=== PATIENT | male | born 1935 | race Caucasian/White ===

== ENCOUNTER 2018-01-25 09:45 | Emergency (ER) | payer MEDICARE, BC, OTHER | END 2018-01-25 10:36 | disposition home or self-care (01) | LOC: SCSER 09:45 | DX: G89.18 Other acute postprocedural pain (principal); R51 Headache; E78.5 Hyperlipidemia, unspecified; G40.909 Epilepsy, unspecified, not intractable, without status epilepticus; Z79.82 Long term (current) use of aspirin; Z79.899 Other long term (current) drug therapy | CPT/HCPCS: 99283 ==

== ENCOUNTER 2018-06-10 14:34 | Emergency (ER) | payer MEDICARE, BC, OTHER | END 2018-06-10 18:42 | disposition home or self-care (01) | LOC: ERS 14:34 | DX: S06.5X1A Traumatic subdural hemorrhage with loss of consciousness of 30 minutes or less, initial encounter (principal); E78.5 Hyperlipidemia, unspecified; Z79.899 Other long term (current) drug therapy; W19.XXXA Unspecified fall, initial encounter | CPT/HCPCS: 99283 ==

== ENCOUNTER 2018-06-19 08:48 | Outpatient (CLI) | payer MEDICARE, OTHER ==
--- NOTE | 2018-06-19 10:12 | CT ---
BRAIN CT WITHOUT IV CONTRAST: Date: 06/19/18 HISTORY: 83-year-old male with history of prior subdural hemorrhage from a fall in April 2018. S06.5X0A. FINDINGS: There is some stable atrophy and chronic white matter ischemic change. There is an approximately 0.6 cm thick focal area of extra-axial fluid overlying the left posterior frontoparietal region, evidence for chronic subdural hematoma. No significant midline shift. No evidence for acute hemorrhage. 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 Stable atrophy and chronic white matter ischemic change. No a cute mass or bleed. POS: [facility]
== END 2018-06-19 08:49 | disposition home or self-care (01) ==
LOC: TBSIIMAG 08:48
PROVIDERS: ATTEND Surgery
DX: S06.5X0A Traumatic subdural hemorrhage without loss of consciousness, initial encounter (principal); G31.9 Degenerative disease of nervous system, unspecified
CPT/HCPCS: 70450

== ENCOUNTER 2018-12-20 08:57 | Inpatient (IN) | payer MEDICARE, OTHER, BC ==
[2018-12-20] MEDS ORDERED: Morphine 4 MG/ML VIAL ONE (09:55)
[2018-12-20] MEDS ORDERED: SODIUM CHLORIDE 0.9% IVPB SCH (10:00)
[2018-12-20] MEDS ORDERED: ACYCLOVIR SODIUM IVPB SCH (10:00)
[2018-12-20 10:06] LABS: Hemoglobin 15.5 g/dL (14.0-18.0); Mean Corpuscular HGB CONC 34.5 g/dL (32.0-36.0); Mean Corpuscular Hemoglobin 32.2 pg (27.0-31.0); Mean Corpuscular Volume 93.2 fL (78.0-98.0); RBC Distribution Width 11.8 % (11.5-14.5); Red Blood Cell (RBC) Count 4.81 mill/uL (4.70-6.10); White Blood Cell (WBC) Count 5.5 thou/uL (4.8-10.8)
[2018-12-20 10:22] LABS: Large Platelets SLIGHT; Lymphocytes 2 % (21-51); MDiff Complete? YES; Mean Platelet Volume 7.5 fL (7.4-10.4); Monocytes 10 % (0-10); Neutrophil 78 % (42-75); Platelet Count 107 thou/uL (130-400); Platelet Morphology Comment Appears Decreased; RBC Morphology Normal; Reactive Lymphocytes 10 % (0-10)
[2018-12-20 10:27] LABS: ALT (SGPT) 46 U/L (8-55); AST (SGOT) 32 U/L (5-34); Albumin 4.1 g/dL (3.4-4.8); Alkaline Phosphatase 83 U/L (40-150); Anion Gap 13 mmol/L (10-20); BUN (Urea Nitrogen) 19 mg/dL (8.4-25.7); Bilirubin, Total 1.6 mg/dL (0.2-1.2); Calc. Creatinine Clearance 0 mL/min (70-130); Calcium 9.1 mg/dL (7.8-10.44); Carbon Dioxide 28 mmol/L (23-31); Chloride 93 mmol/L (98-107); Estimated GFR-MDRD 71; Globulin 2.1 g/dL (2.4-3.5); Glucose 111 mg/dL (83-110); Potassium 4.3 mmol/L (3.5-5.1); Protein, Total 6.2 g/dL (5.8-8.1); Sodium 130 mmol/L (136-145)
--- NOTE | 2018-12-20 11:58 | RAD ---
CHEST 1 VIEW: HISTORY: Altered mental status. COMPARISON: None. FINDINGS: There are surgical clips and mediastinal sternotomy wires. Normal cardiac silhouette. The pulmonary vessels and hilum are normal. Costophrenic angles are clear. Chronic changes, without consolidatio n or mass. No pneumothorax or osseous abnormalities. IMPRESSION: No acute cardiopulmonary process. POS: [facility]
--- NOTE | 2018-12-20 12:07 | CT ---
HEAD CT WITHOUT CONTRAST: DATE: 12/20/2018. COMPARISON: 06/19/2018. HISTORY: Seizures, head injury. TECHNIQUE: Axial CT imaging at 5 mm intervals from vertex through the skull base without contrast. FINDINGS: There is atherosclerotic calcification of the distal right vertebral artery and bilateral cavernous c arotid arteries. There is mild diffuse cerebral volume loss. There is periventricular and deep white matter hypodensi ty, evidence of small-vessel disease. There is no intracranial hemorrhage, midline shift, or mass effect. IMPRESSION: Chronic findings as detailed above. No intracranial hemorrhage or displaced calvarial fracture. POS: [facility]
[2018-12-20 12:31] LABS: Bilirubin Negative (Negative); Blood, Urine Negative (Negative); Clarity CLEAR (Clear); Glucose, Urine (Dipstick) Negative (Negative); Leukocyte Negative (Negative); Nitrite Negative (Negative); Protein, Urine (Dipstick) Trace mg/dL (Neg-Trace); Specific Gravity, Urine 1.023 (1.002-1.036); Urobilinogen 0.2 mg/dL (0.2-1.0); pH, Urine 5.5 (5.0-9.0)
[2018-12-20] MEDS ORDERED: Proparacaine 0.5% Opth 15 ML BOT ONE (13:00)
[2018-12-20] MEDS ORDERED: Fluorescein Opthalmic Strip ONE (13:00)
[2018-12-20] MEDS ORDERED: Zolpidem Tartrate 5 MG TAB PO PRN (14:00)
[2018-12-20] MEDS ORDERED: Ondansetron PF 4 MG/2 ML Vial IVP PRN (14:00)
--- NOTE | 2018-12-20 14:20 | PDOC.EVN ---
Event Note - Event Note Event Note: H&P dictated #[id number] A/P 1) Shingles on V1 distribution branch 2) CAD s/p CABG in 1996 3) HTN 4) HLD 5) Hx of seizures - acyclovir 800mg IV q8hrs, case d/w patient's opthamologist Dr. Tejada, has lesions in his eyes, will require inaptient admission - gabapentin for pain - calamine lotion BID - home meds continued as appropriate - full code - off note patient sees Dr. Campbell for his seizures, stable - case and plan d/w patient at length, he understood and agreed with this plan.
[2018-12-20 15:22] VITALS: BMI 24.5
[2018-12-20] MEDS: Acyclovir Sodium 660 MG in Sodium Chloride 0.9% 100 ML IVPB SCH (18:30)
[2018-12-20] MEDS: LEVETIRACETAM 750 MG PO SCH (21:08)
[2018-12-20] MEDS ORDERED: Ketorolac Tromethamine 30 MG/ML VIAL IVP PRN (21:15)
[2018-12-21] MEDS: Acyclovir Sodium 660 MG in Sodium Chloride 0.9% 100 ML IVPB SCH ×3 (01:10→18:06)
[2018-12-21 06:38] LABS: Anion Gap 13 mmol/L (10-20); BUN (Urea Nitrogen) 25 mg/dL (8.4-25.7); Calc. Creatinine Clearance 59 mL/min (70-130); Calcium 8.9 mg/dL (7.8-10.44); Carbon Dioxide 30 mmol/L (23-31); Chloride 94 mmol/L (98-107); Estimated GFR-MDRD 73; Glucose 107 mg/dL (83-110); Potassium 4.5 mmol/L (3.5-5.1); Sodium 132 mmol/L (136-145)
[2018-12-21 06:44] LABS: Eosinophils 1 % (0-10); Hemoglobin 15.2 g/dL (14.0-18.0); Lymphocytes 20 % (21-51); MDiff Complete? YES; Mean Corpuscular HGB CONC 33.9 g/dL (32.0-36.0); Mean Corpuscular Hemoglobin 32.2 pg (27.0-31.0); Mean Corpuscular Volume 95.1 fL (78.0-98.0); Mean Platelet Volume 7.6 fL (7.4-10.4); Monocytes 10 % (0-10); Neutrophil 68 % (42-75); Platelet Count 116 thou/uL (130-400); Platelet Morphology Comment Appears Decreased; RBC Distribution Width 11.9 % (11.5-14.5); Red Blood Cell (RBC) Count 4.72 mill/uL (4.70-6.10); White Blood Cell (WBC) Count 4.5 thou/uL (4.8-10.8)
--- NOTE | 2018-12-21 07:59 | HP ---
CHIEF COMPLAINT: Left-sided head pain. 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 On visual examination, he was found to have lesions in his cornea as well. The patient has an skirt maker that he sees in [facility]. Assistant Front Office Manager was contacted. Assistant Front Office Manager name is Dr. Tejada. The skirt maker recommended admission to the hospital for IV acyclovir to be taken 10 mg/kg q.8 hours. The patient states that he has never had this issue before. Does admit to prior medical history of coronary artery bypass graft in 1996 and coronary artery disease, hyperlipidemia, and hypertension. The patient otherwise denies any other nausea, vomiting, diarrhea, constipation, chest pain, fever, chills, or shortness of breath. No family at bedside during time of interview. The patient states currently pain is well controlled. He is having significant difficulty when he opens his left eye. Otherwise, no other issues. No alleviating or aggravating factors. Pain is 7/10 and lightning bolt like in nature. ALLERGIES: NO KNOWN DRUG ALLERGIES. PAST MEDICAL HISTORY: Hypertension, hyperlipidemia, coronary artery disease, status post CABG in 1996. SOCIAL HISTORY: Social drinker. Nonsmoker. FAMILY HISTORY: Heart disease and hypertension. HOME MEDICATIONS: See DEC. REVIEW OF SYSTEMS: All systems reviewed, pertinent positives in HPI, otherwise negative. PHYSICAL EXAMINATION: VITAL SIGNS: Blood pressure 144/98, temperature 98, respiratory rate 18, heart rate of 88. GENERAL: The patient is lying in bed comfortably. HEENT: Crusted rash noted with herbert crust on distribution of the trigeminal nerve. The patient noted to have ocular swelling on the left eye as well. Orbital edema noted upon opening of the eyelid. The patient was noted to have some lesions on the cornea. Otherwise, oral cavity moist and pink. Thyroid nontender, mobile. CARDIOVASCULAR: Regular rate and rhythm. S1, S2. No murmurs, rubs, or gallops appreciated. PULMONARY: Clear to auscultation bilaterally. No respiratory distress. Normal respiratory rate. ABDOMEN: Positive bowel sounds. Soft, nontender. No rebound or guarding noted. EXTREMITIES: 2+ peripheral pulses. No cyanosis, clubbing, or edema noted. NEUROLOGIC: Cranial nerves 2 through 12 intact. LABORATORY DATA: CBC within normal limits. Basic metabolic panel shows serum sodium of 130, otherwise rest of BMP within normal limits. Urinalysis has trace ketones, otherwise is within normal limits. The patient had a chest x-ray done, which showed no acute cardiopulmonary pathology. The patient also had a brain CT done, which showed atherosclerotic calcifications in the distal right vertebral artery as well as bilateral cavernous carotid arteries; however, no acute intracranial hemorrhage or displaced fracture or bleeding noted or prior tumors noted. ASSESSMENT: 1. Shingles branch of the trigeminal nerve. 2. Hypertension. 3. Coronary artery disease. 4. Hyperlipidemia. 5. Seizures. PLAN: 1. At this point in time after discussion with the skirt maker, we will admit the patient for IV acyclovir 10 mg/kg q.8 hours which comes out to about 800 mg q.8 hours. 2. We will also give the patient calamine lotion to be applied 10 mL q.[address] will place the patient on isolation and droplet precaution. 4. Labs dated in the morning. 5. We will use gabapentin for neuropathic pain. 6. We will also provide the patient with his home blood pressure medications. 7. We will also continue his home medications for seizures. 8. SCDs for DVT prophylaxis. The patient wishes to remain a full code after discussion. Case and plan discussed with the patient at length. He understood and agreed with this plan. Job ID: [id number]
[2018-12-21] MEDS: Aspirin 81 mg Enteric Coated Tablet PO SCH (09:34)
[2018-12-21] MEDS: Lisinopril 10 MG TAB PO SCH (09:34)
[2018-12-21] MEDS: Atorvastatin Calcium 40 MG TAB PO SCH (09:34)
[2018-12-21] MEDS: LEVETIRACETAM 750 MG PO SCH ×2 (09:35→21:05)
[2018-12-21] MEDS: Calamine/Zinc Oxide 177 ML LOTION TP SCH (09:59)
--- NOTE | 2018-12-21 14:56 | PDOC.PN ---
- Subjective Encounter Start Date: 12/21/18 Encounter Start Time: 14:54 Subjective: pt does not talk much and unintelligable replies -: unable to open L eye.R -: RN was able to feed him Ensure w/o swollowing issues no family at bedside - Objective MAR Reviewed: Yes Vital Signs & Weight: Vital Signs (12 hours) Temp Pulse Resp BP BP Pulse Ox 12/21/18 09:34 166/66 H 12/21/18 08:44 100.7 F H 83 20 160/66 H 93 L Weight Weight 157 lb I&O: 12/20/18 12/21/18 12/22/18 06:59 06:59 06:59 Intake Total 200 Balance 200 Result Diagrams: 12/21/18 04:26 12/21/18 04:26 Phys Exam - Physical Examination Constitutional: NAD HEENT: PERRLA, moist MMs, oral pharynx no lesions left eyelid swollen.Extensive crusting rash on left forhead Neck: no nodes, no JVD, supple, full ROM Respiratory: no wheezing, no rales, no rhonchi, clear to auscultation bilateral Cardiovascular: RRR, no significant murmur Gastrointestinal: soft, non-tender, no distention, positive bowel sounds Musculoskeletal: no edema, pulses present Neurological: non-focal, normal sensation, moves all 4 limbs does not follow commands much Psychiatric: normal affect Dx/Plan (1) HZV (herpes zoster virus) with ophthalmic complication Code(s): B02.30 - ZOSTER OCULAR DISEASE, UNSPECIFIED Status: Acute (2) HTN (hypertension) Code(s): I10 - ESSENTIAL (PRIMARY) HYPERTENSION Status: Chronic (3) CAD (coronary artery disease) Code(s): I25.10 - ATHSCL HEART DISEASE OF [place] CORONARY ARTERY W/O ANG PCTRS Status: Chronic - Plan continue antibiotics, PT/OT, DVT proph w/SCDs cont IV acyclovir. -: will consult Othalmologuy for zoster opthalmicus -: cont home meds.on antiepileptics.? Sz disorder -: BP running high. cont home meds. prn antihypertensives -: am labs. contact/droplet isolation * .low grade fever-check blood Cx * cont gabapentin prn for neuralgia Review of Systems - Review of Systems Other: can not be reliably obtained due to ? underlying dementia - Medications/Allergies Allergies/Adverse Reactions: Allergies Allergy/AdvReac Type Severity Reaction Status Date / Time shellfish derived Allergy Verified 12/20/18 15:28 Medications: Current Medications Aspirin (Ecotrin) 81 mg PO DAILY [facility] Last Admin: 12/21/18 09:34 Dose: 81 mg Atorvastatin Calcium (Lipitor) 80 mg PO DAILY [facility] Last Admin: 12/21/18 09:34 Dose: 80 mg Calamine/Zinc Oxide (Calamine Lotion) 10 ml TP DAILY [facility] Last Admin: 12/21/18 09:59 Dose: 10 ml Gabapentin (Neurontin) 300 mg PO TID PRN PRN Reason: neuro pathic pain Acyclovir Sodium 660 mg/ (Sodium Chloride) 113.2 mls @ 97.586 mls/hr IVPB 0200, 1000,1800 [facility] Last Admin: 12/21/18 09:32 Dose: 113.2 mls Ketorolac Tromethamine (Toradol) 15 mg IVP Q6H PRN PRN Reason: PAIN/TEMPERATURE Stop: 12/25/18 21:16 Last Admin: 12/21/18 01:07 Dose: 15 mg Lisinopril (Zestril) 10 mg PO DAILY [facility] Last Admin: 12/21/18 09:34 Dose: 10 mg Ondansetron HCl (Zofran) 4 mg IVP Q6H PRN PRN Reason: Nausea/Vomiting Levetiracetam 750 Mg 0 each PO BID [facility] Last Admin: 12/21/18 09:35 Dose: 1 each Zolpidem Tartrate (Ambien) 5 mg PO HSPRN PRN PRN Reason: Insomnia
[2018-12-21] MEDS: Acetaminophen 325 MG TAB PO PRN (18:07)
[2018-12-21] MEDS: OXcarbazepine 150 MG TAB PO SCH (21:05)
[2018-12-22] MEDS: Acyclovir Sodium 660 MG in Sodium Chloride 0.9% 100 ML IVPB SCH ×3 (01:29→17:51)
[2018-12-22] MEDS: Acetaminophen 325 MG TAB PO PRN ×2 (01:29→20:30)
[2018-12-22] MEDS: Aspirin 81 mg Enteric Coated Tablet PO SCH (08:54)
[2018-12-22] MEDS: Lisinopril 10 MG TAB PO SCH (08:54)
[2018-12-22] MEDS: Atorvastatin Calcium 40 MG TAB PO SCH (08:55)
[2018-12-22] MEDS: LEVETIRACETAM 750 MG PO SCH ×2 (08:55→20:27)
[2018-12-22] MEDS: Gabapentin 300 MG CAP PO PRN ×2 (08:55→18:03)
[2018-12-22] MEDS: Calamine/Zinc Oxide 177 ML LOTION TP SCH (08:56)
[2018-12-22] MEDS: OXcarbazepine 150 MG TAB PO SCH ×2 (09:16→20:26)
--- NOTE | 2018-12-22 14:06 | PDOC.PN ---
- Subjective Encounter Start Date: 12/22/18 Encounter Start Time: 14:04 Subjective: feels better. care discussed in length w at bedside -: RN reports better appetite -: no new events. reports he sleeps for long hrs at home too - Objective MAR Reviewed: Yes Vital Signs & Weight: Vital Signs (12 hours) Temp Pulse Resp BP BP Pulse Ox 12/22/18 11:45 97.8 F 67 20 160/77 H 92 L 12/22/18 08:54 154/73 H 12/22/18 08:07 98.9 F 65 20 154/73 H 93 L 12/22/18 08:00 93 L 12/22/18 04:17 98.4 F 67 20 156/68 H 92 L Weight Weight 157 lb I&O: 12/21/18 12/22/18 12/23/18 06:59 06:59 06:59 Intake Total 200 910 Balance 200 910 Result Diagrams: 12/21/18 04:26 12/21/18 04:26 Additional Labs: Microbiology 12/21/18 12:04 Venous blood - Right Arm Blood Culture - Preliminary Specimen has been received and culture in progress. No Growth to date. 12/21/18 12:04 Venous blood - Left Hand Blood Culture - Preliminary Specimen has been received and culture in progress. No Growth to date. Phys Exam - Physical Examination Constitutional: NAD scabing zoster rash L forehead w eyelid swelling Neck: no nodes, no JVD, supple, full ROM Respiratory: no wheezing, no rales, no rhonchi, clear to auscultation bilateral Cardiovascular: RRR, no significant murmur Gastrointestinal: soft, non-tender, no distention, positive bowel sounds Musculoskeletal: no edema, pulses present Neurological: non-focal, normal sensation, moves all 4 limbs Psychiatric: normal affect Skin: no rash Dx/Plan (1) HZV (herpes zoster virus) with ophthalmic complication Code(s): B02.30 - ZOSTER OCULAR DISEASE, UNSPECIFIED Status: Acute Comment: on IV Acyclovir (2) HTN (hypertension) Code(s): I10 - ESSENTIAL (PRIMARY) HYPERTENSION Status: Chronic (3) CAD (coronary artery disease) Code(s): I25.10 - ATHSCL HEART DISEASE OF [place] CORONARY ARTERY W/O ANG PCTRS Status: Chronic - Plan plan discussed w/ family, DVT proph w/SCDs clinically better. fever improving. blood Cx -ve so far.follow -: cont IV accyclovir -: appreciate Opthalmology eval.no corneal involvement -: supportive care * . Review of Systems - Review of Systems Constitutional: fever. negative: chills, sweats, weakness, malaise, other ENT: negative: Ear Pain, Ear Discharge, Nose Pain, Nose Discharge, Nose Congestion, Mouth Pain, Mouth Swelling, Throat Pain, Throat Swelling, Other Respiratory: negative: Cough, Dry, Shortness of Breath, Hemoptysis, SOB with Excertion, Pleuritic Pain, Sputum, Wheezing Cardiovascular: negative: chest pain, palpitations, orthopnea, paroxysmal nocturnal dyspnea, edema, light headedness, other Gastrointestinal: negative: Nausea, Vomiting, Abdominal Pain, Diarrhea, Constipation, Melena, Hematochezia, Other Genitourinary: negative: Dysuria, Frequency, Incontinence, Hematuria, Retention , Other Other: limited due to somnolence - Medications/Allergies Allergies/Adverse Reactions: Allergies Allergy/AdvReac Type Severity Reaction Status Date / Time shellfish derived Allergy Verified 12/20/18 15:28 Medications: Current Medications Acetaminophen (Tylenol) 650 mg PO Q6H PRN PRN Reason: Fever or Pain Last Admin: 12/22/18 01:29 Dose: 650 mg Aspirin (Ecotrin) 81 mg PO DAILY [facility] Last Admin: 12/22/18 08:54 Dose: 81 mg Atorvastatin Calcium (Lipitor) 80 mg PO DAILY [facility] Last Admin: 12/22/18 08:55 Dose: 80 mg Calamine/Zinc Oxide (Calamine Lotion) 10 ml TP DAILY [facility] Last Admin: 12/22/18 08:56 Dose: 10 ml Gabapentin (Neurontin) 300 mg PO TID PRN PRN Reason: neuro pathic pain Last Admin: 12/22/18 08:55 Dose: 300 mg Acyclovir Sodium 660 mg/ (Sodium Chloride) 113.2 mls @ 97.586 mls/hr IVPB 0200, 1000,1800 [facility] Last Admin: 12/22/18 09:16 Dose: 113.2 mls Ketorolac Tromethamine (Toradol) 15 mg IVP Q6H PRN PRN Reason: PAIN/TEMPERATURE Stop: 12/25/18 21:16 Last Admin: 12/21/18 01:07 Dose: 15 mg Lisinopril (Zestril) 10 mg PO DAILY [facility] Last Admin: 12/22/18 08:54 Dose: 10 mg Ondansetron HCl (Zofran) 4 mg IVP Q6H PRN PRN Reason: Nausea/Vomiting Oxcarbazepine (Trileptal) 150 mg PO BID [facility] Last Admin: 12/22/18 09:16 Dose: 150 mg Levetiracetam 750 Mg 0 each PO BID [facility] Last Admin: 12/22/18 08:55 Dose: 1 each Zolpidem Tartrate (Ambien) 5 mg PO HSPRN PRN PRN Reason: Insomnia
[2018-12-23] MEDS: Acyclovir Sodium 660 MG in Sodium Chloride 0.9% 100 ML IVPB SCH ×3 (01:16→17:23)
[2018-12-23] MEDS: Gabapentin 300 MG CAP PO PRN (05:55)
[2018-12-23] MEDS: Lisinopril 10 MG TAB PO SCH ×2 (08:31→20:44)
[2018-12-23] MEDS: Aspirin 81 mg Enteric Coated Tablet PO SCH (08:32)
[2018-12-23] MEDS: Atorvastatin Calcium 40 MG TAB PO SCH (08:32)
[2018-12-23] MEDS: LEVETIRACETAM 750 MG PO SCH ×2 (08:32→20:44)
[2018-12-23] MEDS: Calamine/Zinc Oxide 177 ML LOTION TP SCH (08:32)
[2018-12-23] MEDS: OXcarbazepine 150 MG TAB PO SCH ×2 (08:46→20:45)
[2018-12-23] MEDS: Acetaminophen 325 MG TAB PO PRN (12:11)
--- NOTE | 2018-12-23 15:14 | PDOC.PN ---
- Subjective Encounter Start Date: 12/23/18 Encounter Start Time: 15:13 Subjective: minimally awake. no chnages since yesterday - Objective MAR Reviewed: Yes Vital Signs & Weight: Vital Signs (12 hours) Temp Pulse Resp BP BP Pulse Ox 12/23/18 12:39 100.1 F H 66 18 163/73 H 92 L 12/23/18 08:32 98.9 F 59 L 20 166/76 H 93 L 12/23/18 08:31 154/73 H 12/23/18 08:00 92 L 12/23/18 05:26 98.6 F 75 16 91 L Weight Weight 157 lb I&O: 12/22/18 12/23/18 12/24/18 06:59 06:59 06:59 Intake Total 910 1520 240 Balance 910 1520 240 Result Diagrams: 12/21/18 04:26 12/21/18 04:26 Additional Labs: Microbiology 12/21/18 12:04 Venous blood - Right Arm Blood Culture - Preliminary NO GROWTH AT 48 HOURS 12/21/18 12:04 Venous blood - Left Hand Blood Culture - Preliminary NO GROWTH AT 48 HOURS Phys Exam - Physical Examination Constitutional: NAD somnolent. difficult to arouse. not follows commands HEENT: PERRLA, moist MMs, sclera anicteric, oral pharynx no lesions crusting zoster on forehead Left side w eyelid involvement Neck: no nodes, no JVD, supple, full ROM Respiratory: no wheezing, no rales, no rhonchi, clear to auscultation bilateral Cardiovascular: RRR, no significant murmur Gastrointestinal: soft, non-tender, no distention, positive bowel sounds Musculoskeletal: no edema, pulses present Neurological: moves all 4 limbs Deviation from normal: sleepy Dx/Plan (1) Metabolic encephalopathy Code(s): G93.41 - METABOLIC ENCEPHALOPATHY Status: Acute (2) HZV (herpes zoster virus) with ophthalmic complication Code(s): B02.30 - ZOSTER OCULAR DISEASE, UNSPECIFIED Status: Acute Comment: on IV Acyclovir (3) HTN (hypertension) Code(s): I10 - ESSENTIAL (PRIMARY) HYPERTENSION Status: Chronic (4) CAD (coronary artery disease) Code(s): I25.10 - ATHSCL HEART DISEASE OF [place] CORONARY ARTERY W/O ANG PCTRS Status: Chronic - Plan DVT proph w/SCDs cont accylovir -: check bvrain MRI -: blood Cx negative so far -: if no improvement in mentation,consult neuro -: cont antiepileptics. no overt seizures.HD stable * . Review of Systems - Review of Systems Other: can not be obtained due to AMS - Medications/Allergies Allergies/Adverse Reactions: Allergies Allergy/AdvReac Type Severity Reaction Status Date / Time shellfish derived Allergy Verified 12/20/18 15:28 Medications: Current Medications Acetaminophen (Tylenol) 650 mg PO Q6H PRN PRN Reason: Fever or Pain Last Admin: 12/23/18 12:11 Dose: 650 mg Aspirin (Ecotrin) 81 mg PO DAILY [facility] Last Admin: 12/23/18 08:32 Dose: 81 mg Atorvastatin Calcium (Lipitor) 80 mg PO DAILY [facility] Last Admin: 12/23/18 08:32 Dose: 80 mg Calamine/Zinc Oxide (Calamine Lotion) 10 ml TP DAILY [facility] Last Admin: 12/23/18 08:32 Dose: 10 ml Gabapentin (Neurontin) 300 mg PO TID PRN PRN Reason: neuro pathic pain Last Admin: 12/23/18 05:55 Dose: 300 mg Acyclovir Sodium 660 mg/ (Sodium Chloride) 113.2 mls @ 97.586 mls/hr IVPB 0200, 1000,1800 [facility] Last Admin: 12/23/18 11:30 Dose: 113.2 mls Ketorolac Tromethamine (Toradol) 15 mg IVP Q6H PRN PRN Reason: PAIN/TEMPERATURE Stop: 12/25/18 21:16 Last Admin: 12/21/18 01:07 Dose: 15 mg Lisinopril (Zestril) 10 mg PO BID [facility] Ondansetron HCl (Zofran) 4 mg IVP Q6H PRN PRN Reason: Nausea/Vomiting Oxcarbazepine (Trileptal) 150 mg PO BID [facility] Last Admin: 12/23/18 08:46 Dose: 150 mg Levetiracetam 750 Mg 0 each PO BID [facility] Last Admin: 12/23/18 08:32 Dose: 1 each Zolpidem Tartrate (Ambien) 5 mg PO HSPRN PRN PRN Reason: Insomnia
[2018-12-24] MEDS: Acyclovir Sodium 660 MG in Sodium Chloride 0.9% 100 ML IVPB SCH ×3 (01:43→17:45)
[2018-12-24] MEDS: Lisinopril 10 MG TAB PO SCH ×2 (08:38→20:44)
[2018-12-24] MEDS: LEVETIRACETAM 750 MG PO SCH ×2 (08:39→20:44)
[2018-12-24] MEDS: Aspirin 81 mg Enteric Coated Tablet PO SCH (08:39)
[2018-12-24] MEDS: Atorvastatin Calcium 40 MG TAB PO SCH (08:39)
[2018-12-24] MEDS: OXcarbazepine 150 MG TAB PO SCH ×2 (08:40→20:44)
[2018-12-24] MEDS: Calamine/Zinc Oxide 177 ML LOTION TP SCH (08:42)
--- NOTE | 2018-12-24 12:27 | MRI ---
MRI BRAIN WITH AND WITHOUT CONTRAST: Date: 12/24/18 COMPARISON: 07/19/15 brain MRI. 12/20/[address] INDICATION: History of trauma, altered mental status. FINDINGS: There is susceptibility which is located in an extra-axial configuration about the anteromedial right frontal lobe. There is also susceptibility along the interhemispheric falx, parafalcine location, an d along the cerebellar tentorium, more notable to the right of midline. There are small susceptibilit y foci, one seen within the pulvinar of the right thalamus and the other within the right lentiform n ucleus. There is moderate chronic ischemic disease involving the cerebral white matter and alexander with superimposed cavitary lacunar infarctions involving the basal ganglia and right ann radiata. There is ventriculomegaly. Mild global atrophy is seen. Motion artifact limits assessment. There is no acu te territorial infarction or mass effect. No midline shift. IMPRESSION: 1. Scattered foci of susceptibility, some of which are extra-axial in location, notably at the anter omedial right frontal convexity and along the right cerebellar tentorium, favoring a small volume of subdural hematoma. 2. Small foci of intraparenchymal susceptibility could relate to entities such as amyloid angiopathy or hemosiderin deposition from prior ischemia with hemosiderin deposition. 3. Ventriculomegaly. 4. No acute territorial infarction or mass effect. POS: [facility]
--- NOTE | 2018-12-24 14:43 | PDOC.PN ---
- Subjective Encounter Start Date: 12/24/18 Encounter Start Time: 14:41 Subjective: feels Ok. at bedside & reports improvement in mentation -: no ON events - Objective MAR Reviewed: Yes Vital Signs & Weight: Vital Signs (12 hours) Temp Pulse Resp BP Pulse Ox 12/24/18 12:47 98.4 F 69 18 161/66 H 92 L 12/24/18 08:00 98.4 F 66 18 166/69 H 92 L Weight Weight 157 lb I&O: 12/23/18 12/24/18 12/25/18 06:59 06:59 06:59 Intake Total 1520 720 480 Balance 1520 720 480 Result Diagrams: 12/21/18 04:26 12/21/18 04:26 Additional Labs: Microbiology 12/21/18 12:04 Venous blood - Right Arm Blood Culture - Preliminary NO GROWTH AT 48 HOURS 12/21/18 12:04 Venous blood - Left Hand Blood Culture - Preliminary NO GROWTH AT 48 HOURS Radiology Reviewed by me: Yes (MRI-small SDH R side) Phys Exam - Physical Examination Constitutional: NAD somnolent & repeats the Qs rather than giving answers HEENT: PERRLA, moist MMs, sclera anicteric, oral pharynx no lesions Left forehead crusting Zoster lesions w Left eye swelling Neck: no nodes, no JVD, supple, full ROM Respiratory: no wheezing, no rales, no rhonchi, clear to auscultation bilateral Cardiovascular: RRR, no significant murmur Gastrointestinal: soft, non-tender, no distention, positive bowel sounds Musculoskeletal: no edema, pulses present Neurological: non-focal, normal sensation, moves all 4 limbs Psychiatric: normal affect Dx/Plan (1) Metabolic encephalopathy Code(s): G93.41 - METABOLIC ENCEPHALOPATHY Status: Acute (2) HZV (herpes zoster virus) with ophthalmic complication Code(s): B02.30 - ZOSTER OCULAR DISEASE, UNSPECIFIED Status: Acute Comment: on IV Acyclovir (3) HTN (hypertension) Code(s): I10 - ESSENTIAL (PRIMARY) HYPERTENSION Status: Chronic (4) CAD (coronary artery disease) Code(s): I25.10 - ATHSCL HEART DISEASE OF [place] CORONARY ARTERY W/O ANG PCTRS Status: Chronic - Plan DVT proph w/SCDs cont IV Acyclovir -: likley home in next 24-48 hours -: at baseline according to . * . Review of Systems - Review of Systems Other: limited due to confusion and somnolence - Medications/Allergies Allergies/Adverse Reactions: Allergies Allergy/AdvReac Type Severity Reaction Status Date / Time shellfish derived Allergy Verified 12/20/18 15:28 Medications: Current Medications Acetaminophen (Tylenol) 650 mg PO Q6H PRN PRN Reason: Fever or Pain Last Admin: 12/23/18 12:11 Dose: 650 mg Aspirin (Ecotrin) 81 mg PO DAILY [facility] Last Admin: 12/24/18 08:39 Dose: 81 mg Atorvastatin Calcium (Lipitor) 80 mg PO DAILY [facility] Last Admin: 12/24/18 08:39 Dose: 80 mg Calamine/Zinc Oxide (Calamine Lotion) 10 ml TP DAILY [facility] Last Admin: 12/24/18 08:42 Dose: 10 ml Clonidine (Catapres) 0.1 mg PO Q4H PRN PRN Reason: SBP>160 Gabapentin (Neurontin) 300 mg PO TID PRN PRN Reason: neuro pathic pain Last Admin: 12/23/18 05:55 Dose: 300 mg Acyclovir Sodium 660 mg/ (Sodium Chloride) 113.2 mls @ 97.586 mls/hr IVPB 0200, 1000,1800 [facility] Last Admin: 12/24/18 10:56 Dose: 113.2 mls Ketorolac Tromethamine (Toradol) 15 mg IVP Q6H PRN PRN Reason: PAIN/TEMPERATURE Stop: 12/25/18 21:16 Last Admin: 12/21/18 01:07 Dose: 15 mg Lisinopril (Zestril) 10 mg PO BID [facility] Last Admin: 12/24/18 08:38 Dose: 10 mg Ondansetron HCl (Zofran) 4 mg IVP Q6H PRN PRN Reason: Nausea/Vomiting Oxcarbazepine (Trileptal) 150 mg PO BID [facility] Last Admin: 12/24/18 08:40 Dose: 150 mg Levetiracetam 750 Mg 0 each PO BID [facility] Last Admin: 12/24/18 08:39 Dose: 1 each Zolpidem Tartrate (Ambien) 5 mg PO HSPRN PRN PRN Reason: Insomnia
[2018-12-24] MEDS ORDERED: Artificial Tear Sol 15 ML BOT L EYE PRN (14:45)
[2018-12-25] MEDS: Acyclovir Sodium 660 MG in Sodium Chloride 0.9% 100 ML IVPB SCH ×3 (01:45→18:02)
[2018-12-25] MEDS: cloNIDine 0.1 MG TAB PO PRN (01:58)
[2018-12-25] MEDS: Gabapentin 300 MG CAP PO PRN (01:58)
[2018-12-25] MEDS: Lisinopril 10 MG TAB PO SCH ×2 (08:09→20:24)
[2018-12-25] MEDS: Aspirin 81 mg Enteric Coated Tablet PO SCH (08:09)
[2018-12-25] MEDS: LEVETIRACETAM 750 MG PO SCH ×2 (08:10→19:27)
[2018-12-25] MEDS: Atorvastatin Calcium 40 MG TAB PO SCH (08:10)
[2018-12-25] MEDS: OXcarbazepine 150 MG TAB PO SCH ×2 (08:10→20:24)
[2018-12-25] MEDS: Calamine/Zinc Oxide 177 ML LOTION TP SCH (08:10)
[2018-12-25 10:08] LABS: #Eosinphils 0.1 thou/uL (0.0-0.7); #Lymphocytes 0.5 thou/uL (1.20-3.40); #Monocytes 0.7 thou/uL (0.11-0.59); #Neutrophils 7.6 thou/uL (1.40-6.50); %Basophils 0.4 % (0.0-1.0); %Eosinophils 1.1 % (0.0-10.0); %Lymphocytes 5.2 % (21.0-51.0); %Monocytes 7.5 % (0.0-10.0); %Neutrophils 85.7 % (42.0-75.0); Hemoglobin 15.8 g/dL (14.0-18.0); Mean Corpuscular HGB CONC 33.7 g/dL (32.0-36.0); Mean Corpuscular Hemoglobin 32.2 pg (27.0-31.0); Mean Corpuscular Volume 95.4 fL (78.0-98.0); Mean Platelet Volume 6.7 fL (7.4-10.4); Platelet Count 194 thou/uL (130-400); RBC Distribution Width 11.6 % (11.5-14.5); White Blood Cell (WBC) Count 8.8 thou/uL (4.8-10.8)
[2018-12-25 10:31] LABS: Anion Gap 13 mmol/L (10-20); BUN (Urea Nitrogen) 26 mg/dL (8.4-25.7); Calc. Creatinine Clearance 50 mL/min (70-130); Calcium 9.3 mg/dL (7.8-10.44); Carbon Dioxide 31 mmol/L (23-31); Chloride 92 mmol/L (98-107); Estimated GFR-MDRD 61; Glucose 117 mg/dL (83-110); Potassium 4.2 mmol/L (3.5-5.1); Sodium 132 mmol/L (136-145)
[2018-12-25] MEDS: Sodium Chloride 0.9% 1,000 ML IV SCH ×2 (12:52→18:02)
--- NOTE | 2018-12-25 15:40 | PDOC.PN ---
- Subjective Encounter Start Date: 12/25/18 Encounter Start Time: 15:38 Subjective: very confused ,not talking sensibly,not eating much - Objective MAR Reviewed: Yes Vital Signs & Weight: Vital Signs (12 hours) Temp Pulse Resp BP BP Pulse Ox 12/25/18 08:09 158/87 H 12/25/18 07:28 99.1 F 87 18 158/87 H 91 L Weight Weight 157 lb I&O: 12/24/18 12/25/18 12/26/18 06:59 06:59 06:59 Intake Total 720 720 Balance 720 720 Result Diagrams: 12/25/18 10:01 12/25/18 10:01 Additional Labs: Accuchecks 12/25/18 05:37 POC Glucose 111 H Phys Exam - Physical Examination Constitutional: NAD HEENT: PERRLA, moist MMs, sclera anicteric, oral pharynx no lesions Neck: no nodes, no JVD, supple, full ROM Respiratory: no wheezing, no rales, no rhonchi, clear to auscultation bilateral Cardiovascular: RRR, no significant murmur, no rub Gastrointestinal: soft, non-tender, no distention, positive bowel sounds Musculoskeletal: no edema, pulses present Neurological: non-focal, normal sensation, moves all 4 limbs Deviation from normal: can not follow commands. difficult to arouse Dx/Plan (1) Metabolic encephalopathy Code(s): G93.41 - METABOLIC ENCEPHALOPATHY Status: Acute (2) HZV (herpes zoster virus) with ophthalmic complication Code(s): B02.30 - ZOSTER OCULAR DISEASE, UNSPECIFIED Status: Acute Comment: on IV Acyclovir (3) HTN (hypertension) Code(s): I10 - ESSENTIAL (PRIMARY) HYPERTENSION Status: Chronic (4) CAD (coronary artery disease) Code(s): I25.10 - ATHSCL HEART DISEASE OF [place] CORONARY ARTERY W/O ANG PCTRS Status: Chronic - Plan plan discussed w/ family, DVT proph w/SCDs MRI WNL except for arely SDH that is 6 weeks old -: will consult eurlogy as baseline unknown.? dmenetia -: start IVF as pt looks clinically dehydrated -: HD stable -: cont IV Acyclovir * . Review of Systems - Review of Systems Other: can not be obtained due to encephalopathy - Medications/Allergies Allergies/Adverse Reactions: Allergies Allergy/AdvReac Type Severity Reaction Status Date / Time shellfish derived Allergy Verified 12/20/18 15:28 Medications: Current Medications Acetaminophen (Tylenol) 650 mg PO Q6H PRN PRN Reason: Fever or Pain Last Admin: 12/23/18 12:11 Dose: 650 mg Artificial Tears (Tears Renewed 15ml Bottle) 2 drop L EYE QID PRN PRN Reason: Dry Eyes Aspirin (Ecotrin) 81 mg PO DAILY [facility] Last Admin: 12/25/18 08:09 Dose: 81 mg Atorvastatin Calcium (Lipitor) 80 mg PO DAILY [facility] Last Admin: 12/25/18 08:10 Dose: 80 mg Calamine/Zinc Oxide (Calamine Lotion) 10 ml TP DAILY [facility] Last Admin: 12/25/18 08:10 Dose: 10 ml Clonidine (Catapres) 0.1 mg PO Q4H PRN PRN Reason: SBP>160 Last Admin: 12/25/18 01:58 Dose: 0.1 mg Gabapentin (Neurontin) 300 mg PO TID PRN PRN Reason: neuro pathic pain Last Admin: 12/25/18 01:58 Dose: 300 mg Acyclovir Sodium 660 mg/ (Sodium Chloride) 113.2 mls @ 97.586 mls/hr IVPB 0200, 1000,1800 [facility] Last Admin: 12/25/18 10:08 Dose: 113.2 mls Sodium Chloride (Normal Saline 0.9%) 1,000 mls @ 75 mls/hr IV .[id number] [facility] Last Admin: 12/25/18 12:52 Dose: 1,000 mls Ketorolac Tromethamine (Toradol) 15 mg IVP Q6H PRN PRN Reason: PAIN/TEMPERATURE Stop: 12/25/18 21:16 Last Admin: 12/21/18 01:07 Dose: 15 mg Levetiracetam (Keppra Oral Solution) 750 mg PO BID [facility] Lisinopril (Zestril) 10 mg PO BID [facility] Last Admin: 12/25/18 08:09 Dose: 10 mg Ondansetron HCl (Zofran) 4 mg IVP Q6H PRN PRN Reason: Nausea/Vomiting Oxcarbazepine (Trileptal) 150 mg PO BID [facility] Last Admin: 12/25/18 08:10 Dose: 150 mg Levetiracetam 750 Mg 0 each PO BID [facility] Last Admin: 12/25/18 08:10 Dose: 1 each Sodium Chloride (Flush - Normal Saline) 10 ml IVF Q12HR [facility] Sodium Chloride (Flush - Normal Saline) 10 ml IVF PRN PRN PRN Reason: Saline Flush Zolpidem Tartrate (Ambien) 5 mg PO HSPRN PRN PRN Reason: Insomnia
[2018-12-25] MEDS: levETIRAcetam 500 mg/5 ml Oral Solution PO SCH (20:24)
[2018-12-26] MEDS: Acyclovir Sodium 660 MG in Sodium Chloride 0.9% 100 ML IVPB SCH ×3 (02:00→17:43)
[2018-12-26] MEDS: levETIRAcetam 500 mg/5 ml Oral Solution PO SCH ×2 (08:33→21:16)
[2018-12-26] MEDS: Atorvastatin Calcium 40 MG TAB PO SCH (08:34)
[2018-12-26] MEDS: OXcarbazepine 150 MG TAB PO SCH ×2 (08:34→21:21)
[2018-12-26] MEDS: Lisinopril 10 MG TAB PO SCH ×2 (08:34→21:15)
[2018-12-26] MEDS: LEVETIRACETAM 750 MG PO SCH ×2 (08:34→21:16)
[2018-12-26] MEDS: Aspirin 81 mg Enteric Coated Tablet PO SCH (08:34)
[2018-12-26] MEDS: Calamine/Zinc Oxide 177 ML LOTION TP SCH (08:35)
[2018-12-26] MEDS: Sodium Chloride 0.9% 1,000 ML IV SCH ×2 (08:35→14:23)
--- NOTE | 2018-12-26 11:04 | CON ---
DATE OF CONSULTATION: 12/25/2018 CONSULTING PHYSICIAN: Hospitalist Service. IMPRESSION: 1. Probable metabolic and toxic encephalopathy secondary to medication. 2. Moderate amount of microvascular disease and some punctate hemorrhages suggestive of vasculopathy. 3. Hypertension. 4. Coronary artery disease. PLAN: Minimalize drugs as able. 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 He was seen by Ophthalmology and given the involvement of the eye, it was recommended to be treated as an inpatient with IV acyclovir. Since admission, he has had some altered level of consciousness based on reviewing the records. There is no family in the room with him today. At this point, he reports that he has not any significant pain. He admits that he is having trouble thinking in a clear fashion. He denies any hallucinations. Denies any lateralized weakness or numbness. He cannot open the left eye at this point. PAST MEDICAL HISTORY: As listed above. ALLERGIES: SHELLFISH. SOCIAL HISTORY: He drinks socially. No tobacco use. No illicit drug use. FAMILY HISTORY: Noncontributory. MEDICATIONS: Medication list was reviewed. REVIEW OF SYSTEMS: Limited due to his difficulty answering questions. PHYSICAL EXAMINATION: GENERAL: He is a well-nourished elderly man, sitting up in bed, in no acute distress. VITAL SIGNS: Blood pressure 154/70, pulse 76, respirations 17, temperature 98.5. HEENT: There is a fairly massive rash that is drying over the left forehead involving the orbital region as well. His conjunctivae appear clear. Pupils reactive on the right. His face does not show any swelling. Oropharynx is clear. NECK: Supple. No lymphadenopathy. EXTREMITIES: No cyanosis, clubbing, or edema. NEUROLOGIC: He was awake and cooperative. He attempted to answer questions, but had difficulty recalling answers as to his location, date, or personal facts such as his address. Cranial nerve exam did not show any facial asymmetry. Tongue protruded to the center. 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 Sensation in the extremities was equal. No abnormal movements were seen. Gait was not tested. LABORATORY STUDIES: Included CBC and serum chemistries are unremarkable. Urinalysis was clear. SUMMARY: This elderly gentleman with an outbreak of shingles, has been placed on multiple medications. He seems cognitively slow. There is no evidence of an acute injury to the brain despite the shingle outbreak. He has not had any type of seizure activity. Uncertain as to why he is on 3 different anticonvulsants. These need to be minimalized as well as complete acyclovir regimen which can also have an impact on cognition. Hopefully, everything will return to normal after this settles down. Job ID: [id number]
[2018-12-26] MEDS: Gabapentin 300 MG CAP PO PRN (13:29)
--- NOTE | 2018-12-26 15:04 | PDOC.PN ---
- Subjective Encounter Start Date: 12/26/18 Encounter Start Time: 15:02 Subjective: clinically better. more awake today -: neurology eval completed.care discussed w at bedside - Objective MAR Reviewed: Yes Vital Signs & Weight: Vital Signs (12 hours) Temp Pulse Resp BP BP BP Pulse Ox 12/26/18 12:12 158/70 H 12/26/18 11:51 98.5 F 78 17 170/79 H 91 L 12/26/18 10:16 92 L 12/26/18 08:34 154/70 H 12/26/18 07:34 98.5 F 76 17 154/70 H 92 L 12/26/18 05:49 98.1 F 76 18 156/70 H 92 L Weight Weight 157 lb I&O: 12/25/18 12/26/18 12/27/18 06:59 06:59 06:59 Intake Total 720 Balance 720 Result Diagrams: 12/25/18 10:01 12/25/18 10:01 Additional Labs: Microbiology 12/21/18 12:04 Venous blood - Right Arm Blood Culture - Final NO GROWTH IN 5 DAYS 12/21/18 12:04 Venous blood - Left Hand Blood Culture - Final NO GROWTH IN 5 DAYS Laboratory Tests 12/26/18 12/26/18 12/26/18 10:43 10:43 10:43 Ammonia 27 Vitamin B12 402 Cortisol 14.50 Phys Exam - Physical Examination Constitutional: NAD more awake and alert today HEENT: PERRLA, moist MMs, sclera anicteric, oral pharynx no lesions left eyelid swelling better.crusting zoster lesions improving on forehead Neck: no nodes, no JVD, supple, full ROM Respiratory: no wheezing, no rales, no rhonchi, clear to auscultation bilateral Cardiovascular: RRR, no significant murmur Gastrointestinal: soft, non-tender, no distention, positive bowel sounds Musculoskeletal: no edema, pulses present Neurological: non-focal, normal sensation, moves all 4 limbs Psychiatric: normal affect Dx/Plan (1) Metabolic encephalopathy Code(s): G93.41 - METABOLIC ENCEPHALOPATHY Status: Acute Comment: improving (2) HZV (herpes zoster virus) with ophthalmic complication Code(s): B02.30 - ZOSTER OCULAR DISEASE, UNSPECIFIED Status: Acute Comment: on IV Acyclovir (3) HTN (hypertension) Code(s): I10 - ESSENTIAL (PRIMARY) HYPERTENSION Status: Chronic (4) CAD (coronary artery disease) Code(s): I25.10 - ATHSCL HEART DISEASE OF [place] CORONARY ARTERY W/O ANG PCTRS Status: Chronic - Plan plan discussed w/ family, out of bed/ambulate, DVT proph w/SCDs cont IV Acyclovir.clinically better -: ambulate -: rehab/snif eval per family request -: am labs -: apprecite neurology recs. B12,ammonia and cortisol levels WNL * . Review of Systems - Review of Systems Other: can not be reliably obtained due to confusion - Medications/Allergies Allergies/Adverse Reactions: Allergies Allergy/AdvReac Type Severity Reaction Status Date / Time shellfish derived Allergy Verified 12/20/18 15:28 Medications: Current Medications Acetaminophen (Tylenol) 650 mg PO Q6H PRN PRN Reason: Fever or Pain Last Admin: 12/23/18 12:11 Dose: 650 mg Artificial Tears (Tears Renewed 15ml Bottle) 2 drop L EYE QID PRN PRN Reason: Dry Eyes Aspirin (Ecotrin) 81 mg PO DAILY [facility] Last Admin: 12/26/18 08:34 Dose: 81 mg Atorvastatin Calcium (Lipitor) 80 mg PO DAILY [facility] Last Admin: 12/26/18 08:34 Dose: 80 mg Calamine/Zinc Oxide (Calamine Lotion) 10 ml TP DAILY [facility] Last Admin: 12/26/18 08:35 Dose: 10 ml Clonidine (Catapres) 0.1 mg PO Q4H PRN PRN Reason: SBP>160 Last Admin: 12/25/18 01:58 Dose: 0.1 mg Gabapentin (Neurontin) 300 mg PO TID PRN PRN Reason: neuro pathic pain Last Admin: 12/26/18 13:29 Dose: 300 mg Acyclovir Sodium 660 mg/ (Sodium Chloride) 113.2 mls @ 97.586 mls/hr IVPB 0200, 1000,1800 [facility] Last Admin: 12/26/18 09:09 Dose: 113.2 mls Sodium Chloride (Normal Saline 0.9%) 1,000 mls @ 75 mls/hr IV .[id number] [facility] Last Admin: 12/26/18 14:23 Dose: Not Given Levetiracetam (Keppra Oral Solution) 750 mg PO BID [facility] Last Admin: 12/26/18 08:33 Dose: 750 mg Lisinopril (Zestril) 10 mg PO BID [facility] Last Admin: 12/26/18 08:34 Dose: 10 mg Ondansetron HCl (Zofran) 4 mg IVP Q6H PRN PRN Reason: Nausea/Vomiting Oxcarbazepine (Trileptal) 150 mg PO BID [facility] Last Admin: 12/26/18 08:34 Dose: 150 mg Levetiracetam 750 Mg 0 each PO BID [facility] Last Admin: 12/26/18 08:34 Dose: Not Given Sodium Chloride (Flush - Normal Saline) 10 ml IVF Q12HR [facility] Last Admin: 12/26/18 08:34 Dose: 10 ml Sodium Chloride (Flush - Normal Saline) 10 ml IVF PRN PRN PRN Reason: Saline Flush Zolpidem Tartrate (Ambien) 5 mg PO HSPRN PRN PRN Reason: Insomnia
[2018-12-26] MEDS: cloNIDine 0.1 MG TAB PO PRN (17:42)
[2018-12-27] MEDS: Sodium Chloride 0.9% 1,000 ML IV SCH ×3 (00:37→13:49)
[2018-12-27] MEDS: Acyclovir Sodium 660 MG in Sodium Chloride 0.9% 100 ML IVPB SCH ×3 (02:01→17:23)
[2018-12-27 08:18] LABS: Anion Gap 11 mmol/L (10-20); BUN (Urea Nitrogen) 20 mg/dL (8.4-25.7); Calc. Creatinine Clearance 64 mL/min (70-130); Calcium 7.8 mg/dL (7.8-10.44); Carbon Dioxide 27 mmol/L (23-31); Chloride 102 mmol/L (98-107); Estimated GFR-MDRD 81; Glucose 98 mg/dL (83-110); Potassium 3.5 mmol/L (3.5-5.1); Sodium 136 mmol/L (136-145)
[2018-12-27] MEDS: levETIRAcetam 500 mg/5 ml Oral Solution PO SCH ×2 (09:05→20:47)
[2018-12-27] MEDS: OXcarbazepine 150 MG TAB PO SCH ×2 (09:06→20:47)
[2018-12-27] MEDS: Atorvastatin Calcium 40 MG TAB PO SCH (09:06)
[2018-12-27] MEDS: Aspirin 81 mg Enteric Coated Tablet PO SCH (09:06)
[2018-12-27] MEDS: LEVETIRACETAM 750 MG PO SCH ×2 (09:07→20:48)
[2018-12-27] MEDS: Calamine/Zinc Oxide 177 ML LOTION TP SCH (09:07)
[2018-12-27] MEDS: Lisinopril 10 MG TAB PO SCH ×2 (09:07→20:47)
[2018-12-27] MEDS: cloNIDine 0.1 MG TAB PO PRN ×2 (13:49→20:56)
--- NOTE | 2018-12-27 14:26 | PDOC.PN ---
- Subjective Encounter Start Date: 12/27/18 Encounter Start Time: 14:24 Subjective: feels Ok. family not at bedsid etoday -: able to drink ensure when helped - Objective MAR Reviewed: Yes Vital Signs & Weight: Vital Signs (12 hours) Temp Pulse Resp BP BP BP Pulse Ox 12/27/18 13:49 172/69 H 12/27/18 12:46 97.6 F 80 18 172/69 H 96 12/27/18 09:17 98.4 F 72 16 173/75 H 91 L 12/27/18 09:07 173/75 H 12/27/18 08:00 91 L 12/27/18 04:30 98.0 F 93 16 104/62 91 L Weight Weight 157 lb I&O: 12/26/18 12/27/18 12/28/18 06:59 06:59 06:59 Intake Total 2059 Balance 2059 Result Diagrams: 12/25/18 10:01 12/27/18 07:02 Phys Exam - Physical Examination Constitutional: NAD sleepy but arousable HEENT: PERRLA, moist MMs, sclera anicteric, oral pharynx no lesions forehead lesions better.eyelid swelling better Neck: no nodes, no JVD, supple, full ROM Respiratory: no wheezing, no rales, no rhonchi, clear to auscultation bilateral Cardiovascular: RRR, no significant murmur Gastrointestinal: soft, non-tender, no distention, positive bowel sounds Musculoskeletal: no edema, pulses present Neurological: non-focal, normal sensation, moves all 4 limbs Psychiatric: normal affect Skin: no rash Dx/Plan (1) Metabolic encephalopathy Code(s): G93.41 - METABOLIC ENCEPHALOPATHY Status: Acute Comment: improving (2) HZV (herpes zoster virus) with ophthalmic complication Code(s): B02.30 - ZOSTER OCULAR DISEASE, UNSPECIFIED Status: Acute Comment: on IV Acyclovir (3) HTN (hypertension) Code(s): I10 - ESSENTIAL (PRIMARY) HYPERTENSION Status: Chronic (4) CAD (coronary artery disease) Code(s): I25.10 - ATHSCL HEART DISEASE OF [place] CORONARY ARTERY W/O ANG PCTRS Status: Chronic - Plan DVT proph w/SCDs will likely need IV Acyclovir for another 24-48 hours. -: encourage PO intake and ambulation -: Rehab eval -: follow blood Cx results. negative so far -: No eye involevemnt per opthalmology * . Review of Systems - Review of Systems Other: unreliable as delirium - Medications/Allergies Allergies/Adverse Reactions: Allergies Allergy/AdvReac Type Severity Reaction Status Date / Time shellfish derived Allergy Verified 12/20/18 15:28 Medications: Current Medications Acetaminophen (Tylenol) 650 mg PO Q6H PRN PRN Reason: Fever or Pain Last Admin: 12/23/18 12:11 Dose: 650 mg Artificial Tears (Tears Renewed 15ml Bottle) 2 drop L EYE QID PRN PRN Reason: Dry Eyes Aspirin (Ecotrin) 81 mg PO DAILY [facility] Last Admin: 12/27/18 09:06 Dose: 81 mg Atorvastatin Calcium (Lipitor) 80 mg PO DAILY [facility] Last Admin: 12/27/18 09:06 Dose: 80 mg Calamine/Zinc Oxide (Calamine Lotion) 10 ml TP DAILY [facility] Last Admin: 12/27/18 09:07 Dose: 10 ml Clonidine (Catapres) 0.1 mg PO Q4H PRN PRN Reason: SBP>160 Last Admin: 12/27/18 13:49 Dose: 0.1 mg Gabapentin (Neurontin) 300 mg PO TID PRN PRN Reason: neuro pathic pain Last Admin: 12/26/18 13:29 Dose: 300 mg Acyclovir Sodium 660 mg/ (Sodium Chloride) 113.2 mls @ 97.586 mls/hr IVPB 0200, 1000,1800 [facility] Last Admin: 12/27/18 09:05 Dose: 113.2 mls Sodium Chloride (Normal Saline 0.9%) 1,000 mls @ 75 mls/hr IV .[id number] [facility] Last Admin: 12/27/18 13:49 Dose: 1,000 mls Levetiracetam (Keppra Oral Solution) 750 mg PO BID [facility] Last Admin: 12/27/18 09:05 Dose: 750 mg Lisinopril (Zestril) 10 mg PO BID [facility] Last Admin: 12/27/18 09:07 Dose: 10 mg Ondansetron HCl (Zofran) 4 mg IVP Q6H PRN PRN Reason: Nausea/Vomiting Oxcarbazepine (Trileptal) 150 mg PO BID [facility] Last Admin: 12/27/18 09:06 Dose: 150 mg Levetiracetam 750 Mg 0 each PO BID [facility] Last Admin: 12/27/18 09:07 Dose: Not Given Sodium Chloride (Flush - Normal Saline) 10 ml IVF Q12HR [facility] Last Admin: 12/27/18 09:17 Dose: 10 ml Sodium Chloride (Flush - Normal Saline) 10 ml IVF PRN PRN PRN Reason: Saline Flush Zolpidem Tartrate (Ambien) 5 mg PO HSPRN PRN PRN Reason: Insomnia
[2018-12-28] MEDS: Acyclovir Sodium 660 MG in Sodium Chloride 0.9% 100 ML IVPB SCH ×3 (01:30→17:37)
[2018-12-28] MEDS: Sodium Chloride 0.9% 1,000 ML IV SCH ×2 (08:04→21:01)
[2018-12-28] MEDS: Aspirin 81 mg Enteric Coated Tablet PO SCH (08:04)
[2018-12-28] MEDS: OXcarbazepine 150 MG TAB PO SCH ×2 (08:04→21:05)
[2018-12-28] MEDS: Lisinopril 10 MG TAB PO SCH ×2 (08:05→20:59)
[2018-12-28] MEDS: levETIRAcetam 500 mg/5 ml Oral Solution PO SCH ×2 (08:05→20:59)
[2018-12-28] MEDS: Atorvastatin Calcium 40 MG TAB PO SCH (08:05)
[2018-12-28] MEDS: Calamine/Zinc Oxide 177 ML LOTION TP SCH (08:05)
[2018-12-28] MEDS: LEVETIRACETAM 750 MG PO SCH ×2 (08:06→21:12)
[2018-12-28] MEDS: cloNIDine 0.1 MG TAB PO PRN ×3 (10:00→21:05)
--- NOTE | 2018-12-28 11:13 | PDOC.PN ---
- Subjective Encounter Start Date: 12/28/18 Encounter Start Time: 10:45 Subjective: f/u for AMS, shingles on Day #8 of IV Acyclovir. Remains confused and not -: ambulatory per PT reports. Needs assistance with meals and ADL's. - Objective MAR Reviewed: Yes Vital Signs & Weight: Vital Signs (12 hours) Temp Pulse Resp BP BP Pulse Ox 12/28/18 10:00 175/76 H 12/28/18 08:05 175/74 H 12/28/18 08:04 91 L 12/28/18 08:03 98.6 F 60 18 175/74 H 91 L Weight Weight 157 lb I&O: 12/27/18 12/28/18 12/29/18 06:59 06:59 06:59 Intake Total 2059 2187 Balance 2059 2187 Result Diagrams: 12/25/18 10:01 12/27/18 07:02 Additional Labs: Microbiology 12/21/18 12:04 Venous blood - Right Arm Blood Culture - Final NO GROWTH IN 5 DAYS 12/21/18 12:04 Venous blood - Left Hand Blood Culture - Final NO GROWTH IN 5 DAYS Radiology Reviewed by me: Yes (MRI brain - no acute infarct, old subdural) Phys Exam - Physical Examination sleeping, minimally verbal HEENT: PERRLA, sclera anicteric, oral pharynx no lesions Neck: no nodes, no JVD, supple, full ROM Respiratory: no wheezing, no rales, no rhonchi, clear to auscultation bilateral Cardiovascular: RRR, no significant murmur, no rub, gallop Gastrointestinal: soft, non-tender, no distention, positive bowel sounds Musculoskeletal: no edema, pulses present Neurological: normal sensation, moves all 4 limbs Skin: normal turgor, cap refill <2 seconds Deviation from normal: crusting lesions on L scalp, periorbital region with few erythematous -: patches Dx/Plan (1) HZV (herpes zoster virus) with ophthalmic complication Code(s): B02.30 - ZOSTER OCULAR DISEASE, UNSPECIFIED Status: Acute Comment: Day#8 IV Acyclovir, continue another 24h then d/c, d/c contact precautions (2) Metabolic encephalopathy Code(s): G93.41 - METABOLIC ENCEPHALOPATHY Status: Acute Comment: Slow improvement, continue supportive mgmt, OOB, re-orientation techniques (3) CAD (coronary artery disease) Code(s): I25.10 - ATHSCL HEART DISEASE OF [place] CORONARY ARTERY W/O ANG PCTRS Status: Chronic (4) HTN (hypertension) Code(s): I10 - ESSENTIAL (PRIMARY) HYPERTENSION Status: Chronic Comment: Labile, titrate BP regimen, continue Lisinopril 10mg BID (5) Seizure disorder Code(s): G40.909 - EPILEPSY, UNSP, NOT INTRACTABLE, WITHOUT STATUS EPILEPTICUS Status: Chronic Comment: Continue Kepp Trileptal - Plan PT/OT, administrator social welfare, out of bed/ambulate, DVT proph w/SCDs Stable currently -: OOB with PT -: Limit sedating medications -: Continue Acyclovir another 24h -: SNF options pending * .
[2018-12-29] MEDS: Acyclovir Sodium 660 MG in Sodium Chloride 0.9% 100 ML IVPB SCH ×2 (01:58→10:18)
[2018-12-29] MEDS: cloNIDine 0.1 MG TAB PO PRN (02:01)
[2018-12-29] MEDS: levETIRAcetam 500 mg/5 ml Oral Solution PO SCH ×2 (08:18→22:12)
[2018-12-29] MEDS: Lisinopril 10 MG TAB PO SCH ×2 (08:19→22:12)
[2018-12-29] MEDS: Aspirin 81 mg Enteric Coated Tablet PO SCH (08:19)
[2018-12-29] MEDS: Calamine/Zinc Oxide 177 ML LOTION TP SCH (08:19)
[2018-12-29] MEDS: OXcarbazepine 150 MG TAB PO SCH ×2 (08:19→22:12)
[2018-12-29] MEDS: Atorvastatin Calcium 40 MG TAB PO SCH (08:19)
[2018-12-29] MEDS: LEVETIRACETAM 750 MG PO SCH ×2 (08:20→22:19)
[2018-12-29] MEDS: Sodium Chloride 0.9% 1,000 ML IV SCH (10:17)
--- NOTE | 2018-12-29 15:21 | PDOC.PN ---
- Subjective Encounter Start Date: 12/29/18 Encounter Start Time: 15:00 Subjective: f/u for HZV of scalp and L periorbital region on 9 days of IV Acyclovir -: Still requiring max assist with ADL's and unable to sit EOB. Options -: for SNF currently. - Objective MAR Reviewed: Yes Vital Signs & Weight: Vital Signs (12 hours) Temp Pulse Resp BP BP BP Pulse Ox 12/29/18 08:27 97.6 F 62 18 177/83 H 95 12/29/18 08:19 179/85 H 12/29/18 08:00 95 12/29/18 04:20 98.3 F 64 18 175/78 H 92 L Weight Weight 157 lb I&O: 12/28/18 12/29/18 12/30/18 06:59 06:59 06:59 Intake Total 2188 2190 480 Balance 2188 2190 480 Result Diagrams: 12/25/18 10:01 12/27/18 07:02 Additional Labs: Microbiology 12/21/18 12:04 Venous blood - Right Arm Blood Culture - Final NO GROWTH IN 5 DAYS 12/21/18 12:04 Venous blood - Left Hand Blood Culture - Final NO GROWTH IN 5 DAYS Phys Exam - Physical Examination grimaces, moans one word crusting plaques on L scalp, periorbital region HEENT: PERRLA, sclera anicteric, oral pharynx no lesions Neck: no nodes, no JVD, supple, full ROM Respiratory: no wheezing, no rales, no rhonchi, clear to auscultation bilateral S1, S2 Cardiovascular: RRR, no significant murmur, no rub, gallop Gastrointestinal: soft, non-tender, no distention, positive bowel sounds Musculoskeletal: no edema, pulses present Neurological: normal sensation, moves all 4 limbs Skin: normal turgor, cap refill <2 seconds Dx/Plan (1) HZV (herpes zoster virus) with ophthalmic complication Code(s): B02.30 - ZOSTER OCULAR DISEASE, UNSPECIFIED Status: Acute Comment: Day#9 IV Acyclovir, d/c Acyclovir, d/c contact precautions (2) Metabolic encephalopathy Code(s): G93.41 - METABOLIC ENCEPHALOPATHY Status: Acute Comment: Slow improvement, continue supportive mgmt, OOB, re-orientation techniques (3) CAD (coronary artery disease) Code(s): I25.10 - ATHSCL HEART DISEASE OF [place] CORONARY ARTERY W/O ANG PCTRS Status: Chronic (4) HTN (hypertension) Code(s): I10 - ESSENTIAL (PRIMARY) HYPERTENSION Status: Chronic Comment: Labile, titrate BP regimen, continue Lisinopril 10mg BID (5) Physical deconditioning Code(s): R53.81 - OTHER [place] Status: Acute Comment: Secondary to immobility, SNF options pending, PT for mobilization (6) Seizure disorder Code(s): G40.909 - EPILEPSY, UNSP, NOT INTRACTABLE, WITHOUT STATUS EPILEPTICUS Status: Chronic Comment: Continue Keppra, Trileptal - Plan plan discussed w/ family, PT/OT, social worker school, out of bed/ambulate, DVT proph w/SCDs Stable currently -: D/C Acyclovir -: D/C Contact precautions -: SNF options pending -: Updated pt's of clinical situation * Likely d/c in 24h
[2018-12-30] MEDS: Sodium Chloride 0.9% 1,000 ML IV SCH ×3 (00:17→12:02)
[2018-12-30] MEDS: Aspirin 81 mg Enteric Coated Tablet PO SCH (08:29)
[2018-12-30] MEDS: Atorvastatin Calcium 40 MG TAB PO SCH (08:29)
[2018-12-30] MEDS: Calamine/Zinc Oxide 177 ML LOTION TP SCH (08:29)
[2018-12-30] MEDS: Lisinopril 10 MG TAB PO SCH (08:29)
[2018-12-30] MEDS: LEVETIRACETAM 750 MG PO SCH (08:30)
[2018-12-30] MEDS: OXcarbazepine 150 MG TAB PO SCH (08:30)
[2018-12-30] MEDS: levETIRAcetam 500 mg/5 ml Oral Solution PO SCH (08:43)
[2018-12-30] MEDS: cloNIDine 0.1 MG TAB PO PRN (12:19)
--- NOTE | 2018-12-30 12:50 | DIS ---
DATE OF ADMISSION: 12/20/2018 DATE OF DISCHARGE: 12/30/2018 DISCHARGE DIAGNOSES: 1. Herpes zoster viral infection with ophthalmic complication, resolving. 2. Acute metabolic encephalopathy secondarily to herpes zoster viral infection, improved. 3. Coronary artery disease, chronic and stable. 4. Hypertension, stable. 5. Physical deconditioning. 6. Seizure disorder, stable. CONSULTATIONS: 1. Dr. Kentrell Easton with Ophthalmology Service. 2. Dr. Cody Hagen with Neurology Service. PERTINENT LABORATORY AND X-RAY FINDINGS: Sodium ranged between 130 to 136, creatinine ranged between 0.90 to 1.15. Vitamin B12 level 402. Serum cortisol level 14.5. CBC showed a white blood cell count ranging between 4.5 to 8.8. Blood cultures x2 dated 12/21/2018, showed no growth at [address] of the brain without contrast dated 12/20/2018, showed chronic findings without acute intracranial process. Portable chest x-ray dated 12/20/2018, showed no acute cardiopulmonary process. 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 No acute intracranial process noted. HOSPITAL COURSE: The patient was initially admitted to the medical floor after presenting with severe left-sided headache. The patient was diagnosed with herpes zoster viral infection of the V1 distribution of the trigeminal nerve with periorbital involvement. The patient was evaluated by the Ophthalmology Service, however, no specific intervention was recommended regarding eye treatment. The patient was placed on acyclovir intravenously for approximately 9 days during his hospital course with overall improvement in the viral infection. The patient was noted with associated metabolic encephalopathy, likely multifactorial including the viral infection. The patient was slow to clinically improve and remained deconditioned and had limited ambulatory status during the hospital course. The patient was evaluated by Physical therapy, needing maximal assistance with sitting in bed and range of motion exercises. The patient received general supportive management and was evaluated by the Neurology Service with recommendations for continuation of antiviral therapy with acyclovir and continuation of his chronic medication regimen including Keppra and Trileptal. Due to the patient's deconditioned status and limited mobility, the patient was evaluated for inpatient rehabilitation services. The patient has been approved and will transition to inpatient rehabilitation on 12/30/2018. I have examined the patient at the time of discharge and discussed followup instructions. The patient currently verbalized understanding and agreement and family in agreement for transfer to inpatient rehabilitation on 12/30/2018. DISCHARGE MEDICATIONS: 1. Vitamin C 500 mg p.o. b.i.d. 2. Enteric-coated aspirin 81 mg p.o. daily. 3. Lipitor 40 mg p.o. daily. 4. Calcium carbonate 500 mg p.o. daily. 5. Vitamin D3 of 1000 units p.o. daily. 6. Flaxseed oil 1000 mg p.o. daily. 7. Keppra Extended Release 750 mg p.o. b.i.d. 8. Lisinopril 10 mg p.o. b.i.d. 9. Trileptal 150 mg p.o. b.i.d. FOLLOWUP: The patient may follow up with his primary care provider, Dr. Melissa Rangel within 7 days of discharge. The patient will follow up with Dr. Cody Hagen and to call his office for appointment, time, and date. The patient will follow up with Dr. Kentrell Easton with Ophthalmology Services and to call his office for appointment, time, and date. CONDITION ON DISCHARGE: Stable. ACTIVITY: Ad christine. DIET: Regular. CODE STATUS: Full. DISPOSITION: Discharged to [facility] on 12/30/2018. TIME SPENT: Total time preparing and coordinating discharge, 35 minutes. Job ID: [id number]
[2018-12-30 15:00] VITALS: BP 164/78; TEMP 99.3
== END 2018-12-30 15:06 | DRG 124 ==
LOC: ERS 08:57 → T4-B 13:52
PROVIDERS: ADMIT Internal Medicine; ATTEND Internal Medicine
DX: B02.30 Zoster ocular disease, unspecified (principal); G93.41 Metabolic encephalopathy; I25.10 Atherosclerotic heart disease of native coronary artery without angina pectoris; I10 Essential (primary) hypertension; G40.909 Epilepsy, unspecified, not intractable, without status epilepticus; Z91.013 Allergy to seafood; Z95.1 Presence of aortocoronary bypass graft; E78.5 Hyperlipidemia, unspecified
CPT/HCPCS: 36415; 36416; 51701; 70450; 70553; 71045; 80048; 80053; 81003; 82140; 82533; 82607; 84484; 85025; 87040; 93005; 96365; 96375; J0133; J1885; J2270; J7050

== ENCOUNTER 2019-02-04 10:16 | Inpatient (IN) | payer MEDICARE, BC, OTHER ==
[2019-02-04 11:03] LABS: #Eosinphils 0.2 thou/uL (0.0-0.7); #Lymphocytes 0.9 thou/uL (1.20-3.40); #Monocytes 0.6 thou/uL (0.11-0.59); %Basophils 0.3 % (0.0-1.0); %Eosinophils 1.9 % (0.0-10.0); %Lymphocytes 10.3 % (21.0-51.0); %Neutrophils 80.4 % (42.0-75.0); Hemoglobin 14.7 g/dL (14.0-18.0); Mean Corpuscular HGB CONC 32.6 g/dL (32.0-36.0); Mean Corpuscular Hemoglobin 30.8 pg (27.0-31.0); Mean Corpuscular Volume 94.5 fL (78.0-98.0); Mean Platelet Volume 6.7 fL (7.4-10.4); Platelet Count 229 thou/uL (130-400); RBC Distribution Width 12.5 % (11.5-14.5); Red Blood Cell (RBC) Count 4.76 mill/uL (4.70-6.10); White Blood Cell (WBC) Count 8.7 thou/uL (4.8-10.8)
[2019-02-04 11:06] LABS: Bilirubin Negative (Negative); Blood, Urine Negative (Negative); Clarity CLEAR (Clear); Glucose, Urine (Dipstick) Negative (Negative); Leukocyte Negative (Negative); Nitrite Negative (Negative); Protein, Urine (Dipstick) Negative (Neg-Trace); Specific Gravity, Urine 1.008 (1.002-1.036)
--- NOTE | 2019-02-04 11:17 | CT ---
CT Brain WO Con History: [Syncope] Comparison: CT brain January 14, 2019 Findings: Severe chronic microvascular ischemic changes. Mild atrophy. No midline shift or mass effec t. No acute hemorrhage or large volume territorial infarction. Globes are unremarkable. The calvarium is intact. Chronic changes. No acute intracranial abnormality. Impression: No acute intracranial abnormality.
--- NOTE | 2019-02-04 11:22 | RAD ---
RIGHT HIP 2 VIEWS: Date: 02/04/19 HISTORY: Pain following injury from a fall. FINDINGS: Minimally displaced and angulated subcapital right femoral neck fracture with some foreshortening and varus deformity. Right hip joint arthrosis. IMPRESSION: Somewhat displaced, foreshortened right subcapital femoral neck fracture. POS: OFF
[2019-02-04 11:27] LABS: ALT (SGPT) 51 U/L (8-55); AST (SGOT) 36 U/L (5-34); Albumin 3.7 g/dL (3.4-4.8); Alkaline Phosphatase 94 U/L (40-150); Anion Gap 17 mmol/L (10-20); BUN (Urea Nitrogen) 12 mg/dL (8.4-25.7); Bilirubin, Total 1.7 mg/dL (0.2-1.2); Calc. Creatinine Clearance 0 mL/min (70-130); Calcium 9.6 mg/dL (7.8-10.44); Carbon Dioxide 26 mmol/L (23-31); Chloride 96 mmol/L (98-107); Estimated GFR-MDRD Greater than 90; Globulin 3.5 g/dL (2.4-3.5); Glucose 113 mg/dL (83-110); Potassium 5.8 mmol/L (3.5-5.1); Protein, Total 7.2 g/dL (5.8-8.1); Sodium 133 mmol/L (136-145)
--- NOTE | 2019-02-04 11:29 | CT ---
CT of the cervical spine without contrast: 02/04/2019 COMPARISON: None HISTORY: Syncope, trauma, pain TECHNIQUE: Axial CT imaging at 2.5 mm intervals from the skull base to the lung apices with coronal a nd sagittal reformatted imaging. FINDINGS: The visualized lung apices are unremarkable. Thyroid gland is heterogeneous and lobulated with a 1.3 cm hypodense nodule within the left lobe. Rec ommend follow-up thyroid ultrasound on a nonemergent basis. The occipital condyles, of the dens, and the C1-2 articulation demonstrates no acute findings. There is prominent degenerative change at the atlantoaxial interspace. The craniocervical junction an d the cervicothoracic junction demonstrates no acute findings. C2-3: Bilateral facet and uncovertebral osteophyte formation, left greater than right. C3-4: Bilateral facet and uncovertebral osteophyte formation, left greater than right. C4-5: Disc space narrowing and anterior osteophyte formation with bilateral facet and uncovertebral o steophyte formation. C5-6: Disc space with mild posterior osteophyte and anterior osteophyte formation. Bilateral facet an d uncovertebral osteophyte formation noted, left greater than right. C6-7: There is disc space narrowing and anterior osteophyte formation. Mild bilateral facet and uncov ertebral osteophyte formation. C7-T1: Unremarkable. No displaced fracture or evidence of dislocation. No prevertebral soft tissue swelling, anterolisthesis, or retrolisthesis noted. IMPRESSION: Multilevel degenerative change with no acute osseous abnormality. Abnormal appearance of the thyroid gland, for which follow-up thyroid ultrasound suggested.
[2019-02-04] MEDS ORDERED: Morphine 2 MG/ML SYRINGE ONE (13:19)
[2019-02-04] MEDS ORDERED: CEFAZOLIN 2 GM in Premix Bag 1 BAG IVPB SCH (14:00)
[2019-02-04 14:01] LABS: Anion Gap 17 mmol/L (10-20); BUN (Urea Nitrogen) 12 mg/dL (8.4-25.7); Calc. Creatinine Clearance 0 mL/min (70-130); Calcium 9.6 mg/dL (7.8-10.44); Carbon Dioxide 24 mmol/L (23-31); Chloride 99 mmol/L (98-107); Estimated GFR-MDRD Greater than 90; Glucose 103 mg/dL (83-110); Potassium 4.5 mmol/L (3.5-5.1); Sodium 135 mmol/L (136-145)
[2019-02-04] MEDS ORDERED: Acetaminophen 325 MG TAB PO PRN (15:55)
[2019-02-04] MEDS ORDERED: Ondansetron ODT 4 MG TAB SL PRN (15:55)
[2019-02-04] MEDS ORDERED: Morphine 2 MG/ML SYRINGE SLOW IVP PRN ×2 (15:55→18:59)
[2019-02-04] MEDS ORDERED: Ondansetron PF 4 MG/2 ML Vial IVP PRN ×2 (15:55→18:59)
[2019-02-04] MEDS ORDERED: Sodium Chloride 0.9% 1,000 ML IV SCH (15:55)
--- NOTE | 2019-02-04 16:10 | HP ---
REQUESTING PHYSICIAN: Dr. Denton. CONSULTATIONS: Orthopedics, Dr. Alvarado. HISTORY OF PRESENT ILLNESS: The patient is an 83-year-old man, who was transferred here from inpatient rehab. The patient had been admitted to their facility originally after becoming deconditioned from admission for herpes zoster ophthalmicus affecting his left eye. The patient while there at that admission, had an episode of aspiration pneumonia, which he was brought to the hospital, admitted again for short period and then transferred back. During this inpatient rehab admission, the patient reportedly was to be discharged this morning when he fell, sustaining a right hip fracture. He was brought to the emergency department, evaluated, examined, noted to have that injury. He was unsure of why he fell. His EKGs and labs were all unremarkable, so it was unclear whether he was syncopal or not. 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 ALLERGIES: SHELLFISH. CURRENT MEDICATIONS: 1. Amlodipine. 2. Eliquis. 3. Ascorbic acid. 4. Aspirin. 5. Atorvastatin. 6. Calcium carbonate. 7. Keppra. 8. Lisinopril. 9. Metoprolol. 10. Potassium chloride. PAST SURGICAL HISTORY: 4-vessel coronary artery bypass graft, coronary ablation. PAST MEDICAL HISTORY: Hypertension, atrial fibrillation, coronary artery disease, HSV. SOCIAL HISTORY: The patient reportedly prior to these admissions would drink approximately one beer a day. Denies drug or tobacco use. Lives at home. Ambulated frequently and he did live at home with his spouse. REVIEW OF SYSTEMS: 10-point review of systems is negative except as otherwise stated. PHYSICAL EXAMINATION: VITAL SIGNS: Blood pressure 144/95, respirations 13, oxygen saturation is 95% on room air, heart rate 92, temperature is 98.4. GENERAL: The patient is resting in bed. He appears uncomfortable when questioned what hurts. He states that it is his headache because he has missed his pain medications. Otherwise, the patient will respond appropriately verbally. His is at bedside to assist with any questions. HEENT: Head is normocephalic and atraumatic. Eyes, markedly photophobic making it difficult to assess extraocular motion also. Ears are atraumatic without discharge. Nose atraumatic without discharge. Oropharynx clear. NECK: Nontender. Trachea is midline. CHEST: Clear to auscultation with good inspiratory and expiratory effort. HEART: Regular rate and rhythm. ABDOMEN: Soft, flat, nontender with active bowel sounds. PELVIS: Stable with pain at the right hip consistent with his fracture. EXTREMITIES: Neurovascularly intact x4. BACK: By report is atraumatic and nontender. LABORATORY FINDINGS: White blood cell count 8.7, hemoglobin 14.7, hematocrit 45.0, platelets 229. Sodium 135, potassium 4.5, chloride 99, CO2 of 24, BUN 12, creatinine 0.72, glucose 103. Troponin 0.013. LFTs are unremarkable. Urinalysis unremarkable. RADIOGRAPHIC FINDINGS: CT of the brain without contrast shows no acute intracranial abnormality. CT of the C-spine without contrast shows multilevel degenerative changes with no acute osseous abnormality. Radiograph of the hip shows a foreshortened right subcapital femoral neck fracture. ASSESSMENT: 1. Status post ground level fall. 2. Right subcapital hip fracture. 3. History of herpes simplex virus infection. 4. History of atrial fibrillation, treated with cardiac ablation. 5. History of coronary artery disease. 6. History of hypertension. 7. History of Eliquis use. PLAN: Plan will be to admit the patient to the telemetry floor at least overnight. The patient does not have any ectopy. We will likely send him to the surgical floor tomorrow. Due to his Eliquis use, the patient will not be able to have surgery until Friday. Friday night, we will make him n.p.o. We will resume his home medications as appropriate, pain management, pulmonary toilet, gastritis, mechanical VTE prophylaxis. Postoperatively, we will have the patient work with Physical and Occupational Therapy and discuss placement with the patient and the family at that time. Evaluation, examination, laboratory, and radiographic findings were discussed with Dr. Dc after this dictation. The patient was evaluated in the emergency department by Dr. Alvarado. Job ID: [id number]
[2019-02-04] MEDS ORDERED: Prevnar 13-Val Conj/PF 0.5 ML SYRINGE IM ONE (17:30)
[2019-02-04] MEDS ORDERED: Ondansetron ODT 4 MG TAB PO PRN (18:59)
[2019-02-04] MEDS ORDERED: Acetaminophen 1,000 MG in Premix Bag 1 BAG IVPB SCH (18:59)
[2019-02-04] MEDS ORDERED: traMADol HCl 50 MG TAB PO PRN (18:59)
[2019-02-04] MEDS ORDERED: Dextrose 5% in Water 1,000 ML IV PRN (18:59)
[2019-02-04] MEDS ORDERED: Ketorolac Tromethamine 30 MG/ML VIAL IVP SCH (18:59)
[2019-02-04] MEDS ORDERED: Dextrose 50% Abboject 50 ML SYRINGE SLOW IVP PRN (18:59)
--- NOTE | 2019-02-04 19:05 | CON ---
DATE OF CONSULTATION: HISTORY OF PRESENT ILLNESS: The patient was at [facility] last night when he got up without getting any help, fell, had a femoral neck fracture on the right. His is at bedside providing history, poor man. In November, he got shingles in his head that went to his eyelids and he is very sensitive to light. He is complaining more about the pain in his head than his right hip fracture. PAST MEDICAL HISTORY: Positive for herpes zoster, generalized seizures, hyperlipidemia, hypertension, coronary artery disease, and diverticulitis. SOCIAL HISTORY: He lives at home usually with his , but due to the herpes zoster while he was in the hospital, he developed atrial fibrillation, so he had an ablation procedure also and he was recovering at [facility] when he fell. PAST SURGICAL HISTORY: CABG. ALLERGIES: SHELLFISH. CURRENT MEDICATIONS: 1. Aspirin. 2. Apixaban. 3. Amlodipine. 4. Keppra. 5. Tylenol. 6. Calcium carbonate. 7. Vitamin D3. 8. Gabapentin. 9. Lisinopril. 10. Metoprolol. 11. Vitamin K. FAMILY HISTORY: For this visit is noncontributory. REVIEW OF SYSTEMS: Positive for head pain, sensitivity to light. He has some mild right hip pain. No shortness of breath, no chest pain currently. says no bowel or bladder problems. Rest of review of systems is negative. PHYSICAL EXAMINATION: GENERAL: Well-nourished appearing male, in obvious distress, more so from his head than his leg. Speech is clear. He is answering questions okay. He is oriented to person and place. HEENT: Normal exam with the exception of he keeps his left eye closed, is very hypersensitive to light on left side of his head due to the herpes zoster. His smile is symmetric. Tongue is midline. NECK: Supple. Trachea midline. RESPIRATORY: No distress. EXTREMITIES: Upper extremities equal size, shape, and symmetry. Normal bulk and tone. Lower extremities, equal lengths, but movement of that hip does cause him some pain. Sensations are otherwise intact as are the pulses. ASSESSMENT: 1. Multiple health issues. 2. Right femoral neck fracture. PLAN: I would like to do a hemiarthroplasty and I explained this to the patient and his . They understand the risks and benefits of surgery as I have been explained and they are both amenable to go forth with surgery. Unfortunately, he will need to be medically cleared before we can do any of this former procedure, which they understand. Trauma is working the patient up. Once they cleared for surgery, we will get him on the surgery schedule to take care of him. Case has been discussed with Dr. Alvarado and once medically cleared, we will get him on the surgery schedule. Job ID: [id number]
[2019-02-04] MEDS: Sodium Chloride 0.9% 1,000 ML IV SCH (21:00)
[2019-02-04] MEDS: HYDROcodone/Acetaminophen 10/325 mg Tablet PO PRN (23:24)
[2019-02-05] MEDS: Sodium Chloride 0.9% 1,000 ML IV SCH (01:21)
[2019-02-05] MEDS: Morphine 4 MG/ML VIAL SLOW IVP PRN ×2 (04:55→23:18)
[2019-02-05 05:24] LABS: #Eosinphils 0.3 thou/uL (0.0-0.7); #Lymphocytes 1.2 thou/uL (1.20-3.40); #Monocytes 0.5 thou/uL (0.11-0.59); #Neutrophils 4.9 thou/uL (1.40-6.50); %Basophils 0.4 % (0.0-1.0); %Eosinophils 3.9 % (0.0-10.0); %Lymphocytes 17.8 % (21.0-51.0); %Neutrophils 70.9 % (42.0-75.0); Hemoglobin 14.6 g/dL (14.0-18.0); Mean Corpuscular HGB CONC 33.8 g/dL (32.0-36.0); Mean Corpuscular Hemoglobin 32.6 pg (27.0-31.0); Mean Corpuscular Volume 96.3 fL (78.0-98.0); Mean Platelet Volume 6.5 fL (7.4-10.4); Platelet Count 203 thou/uL (130-400); RBC Distribution Width 12.4 % (11.5-14.5); Red Blood Cell (RBC) Count 4.49 mill/uL (4.70-6.10); White Blood Cell (WBC) Count 6.8 thou/uL (4.8-10.8)
[2019-02-05 05:44] LABS: Anion Gap 14 mmol/L (10-20); BUN (Urea Nitrogen) 12 mg/dL (8.4-25.7); Calc. Creatinine Clearance 0 mL/min (70-130); Calcium 9.4 mg/dL (7.8-10.44); Carbon Dioxide 28 mmol/L (23-31); Chloride 98 mmol/L (98-107); Estimated GFR-MDRD Greater than 90; Glucose 111 mg/dL (83-110); Magnesium 1.8 mg/dL (1.6-2.6); Phosphorus 3.4 mg/dL (2.3-4.7); Potassium 3.9 mmol/L (3.5-5.1); Sodium 136 mmol/L (136-145)
[2019-02-05] MEDS ORDERED: traMADol HCl 50 MG TAB PO PRN (07:04)
[2019-02-05] MEDS ORDERED: Simethicone Chewable 80 MG TAB PO PRN (07:07)
[2019-02-05] MEDS ORDERED: Calcium Carbonate 500 MG ChewTAB PO PRN (07:30)
[2019-02-05] MEDS: HYDROcodone/Acetaminophen 10/325 mg Tablet PO PRN ×2 (07:43→14:06)
[2019-02-05] MEDS: Potassium Chloride 20 MEQ TAB PO SCH (09:48)
[2019-02-05] MEDS: Calcium Carbonate 500 MG TAB PO SCH (09:48)
[2019-02-05] MEDS: Ascorbic Acid 500 mg Chewable Tablet PO SCH ×2 (09:48→21:24)
[2019-02-05] MEDS: Saccharomyces boulardii 250 MG CAP PO SCH (09:49)
[2019-02-05] MEDS: Polyethylene Glycol 3350 17 GM Packet PO SCH (09:49)
[2019-02-05] MEDS: Senokot S 8.6-50 MG TAB PO SCH ×2 (09:49→21:25)
--- NOTE | 2019-02-05 13:10 | PRG ---
DATE OF SERVICE: 02/05/2019 SUBJECTIVE: The patient was seen this morning lying in bed, was repeatedly rubbing his head and reported that he has a headache, that is best treated with Tylenol. He did report he slept well overnight, also has right-sided hip pain. He is nonweightbearing on that side and pending OR. He is tolerating a regular diet and urinating without difficulty. Denies nausea, vomiting, or diarrhea. OBJECTIVE: VITAL SIGNS: Temperature 97.3, pulse 86, respirations 20, oxygen saturation 93% on room air, blood pressure 135/76. GENERAL: Elderly male, lying in bed with slight distress. PULMONARY: Equal chest rise and fall. Clear breath sounds bilaterally. No signs of acute respiratory distress. CARDIAC: Regular rate and rhythm. No murmurs, gallops, or rubs. GI: Abdomen is soft, nontender, nondistended. EXTREMITIES: Right lower extremity, gross motor and sensation intact. 2+ pulses in all extremities. Pain to right lower extremity at the location of the right thigh. No gross signs of trauma. LABORATORY FINDINGS: White count 6.8, hemoglobin 14.6, hematocrit 43.2, platelets 203. Sodium 136, potassium 3.9, chloride 98, carbon dioxide 28, BUN 12, creatinine 0.74, glucose 115, phos 3.4, magnesium 1.8. DIAGNOSTIC FINDINGS: There are no new diagnostic findings to report. ASSESSMENT: 1. Status post ground level fall. 2. Right subcapital hip fracture. 3. History of hypertension, Atrial fibrillation, Seizures, Herpes simplex virus , Coronary artery bypass grafting, and coronary artery disease. PLAN: The patient will be going to the OR tomorrow with Dr. Alvarado to address his right hip fracture. His repair was delayed due to Eliquis, which we are holding at this time. He can have a regular diet and will be n.p.o. after midnight. He will also have normal saline at 70 in an hour at that time. We will restart his home medications as indicated. Today, we will restart vitamin C, atorvastatin, Keppra, metoprolol, KCl, and simethicone. We will continue to hold his antihypertensives at this time and restart them as able postoperatively. We will replace magnesium as well today. PT/OT to see the patient postoperatively. Can continue to be on telemetry, but we will go to the floor postoperatively if he has no ectopy. The patient was discussed with Dr. Hayes after morning rounds. Job ID: [id number] MTDD
[2019-02-05 13:54] VITALS: BMI 23.3
[2019-02-05] MEDS: Acetaminophen 325 MG TAB PO SCH ×3 (14:10→23:17)
[2019-02-05] MEDS: Magnesium 2 GM/50 ML 2 GM in Premix Bag 1 BAG IVPB SCH ×2 (14:31→17:10)
[2019-02-05] MEDS: Ibuprofen 600 MG TAB PO SCH ×2 (17:12→21:24)
[2019-02-05] MEDS: Famotidine 20 MG TAB PO SCH (21:24)
[2019-02-05] MEDS: Atorvastatin Calcium 40 MG TAB PO SCH (21:24)
[2019-02-06] MEDS: hydrALAZINE 20 MG/ML VIAL SLOW IVP PRN ×2 (01:51→05:33)
[2019-02-06] MEDS ORDERED: Amlodipine 5 MG TAB PO SCH (04:15)
[2019-02-06] MEDS ORDERED: Lisinopril 10 MG TAB PO SCH ×2 (04:30→21:00)
[2019-02-06] MEDS: Acetaminophen 325 MG TAB PO SCH (05:09)
[2019-02-06] MEDS: Ibuprofen 600 MG TAB PO SCH (05:13)
[2019-02-06 05:19] LABS: #Eosinphils 0.2 thou/uL (0.0-0.7); #Lymphocytes 0.9 thou/uL (1.20-3.40); #Monocytes 0.7 thou/uL (0.11-0.59); #Neutrophils 5.9 thou/uL (1.40-6.50); %Basophils 0.4 % (0.0-1.0); %Eosinophils 2.1 % (0.0-10.0); %Lymphocytes 11.8 % (21.0-51.0); %Monocytes 8.5 % (0.0-10.0); %Neutrophils 77.2 % (42.0-75.0); Mean Corpuscular HGB CONC 33.7 g/dL (32.0-36.0); Mean Corpuscular Hemoglobin 32.2 pg (27.0-31.0); Mean Corpuscular Volume 95.5 fL (78.0-98.0); Mean Platelet Volume 6.8 fL (7.4-10.4); Platelet Count 189 thou/uL (130-400); RBC Distribution Width 12.3 % (11.5-14.5); Red Blood Cell (RBC) Count 4.35 mill/uL (4.70-6.10); White Blood Cell (WBC) Count 7.7 thou/uL (4.8-10.8)
[2019-02-06 05:40] LABS: Anion Gap 14 mmol/L (10-20); BUN (Urea Nitrogen) 12 mg/dL (8.4-25.7); Calc. Creatinine Clearance 82 mL/min (70-130); Carbon Dioxide 26 mmol/L (23-31); Chloride 96 mmol/L (98-107); Estimated GFR-MDRD Greater than 90; Glucose 119 mg/dL (83-110); Magnesium 1.8 mg/dL (1.6-2.6); Phosphorus 2.9 mg/dL (2.3-4.7); Potassium 3.8 mmol/L (3.5-5.1); Sodium 132 mmol/L (136-145)
[2019-02-06] MEDS ORDERED: Propofol 1,000 MG/100 ML VIAL IV ONE ×2 (06:42→06:46)
[2019-02-06 06:49] LABS: Actual Bicarbonate (HCO3a) 14.7 mEq/L (22-28); Base Excess (BEa) -7.5 mEq/L (-2.0 to +3.0); Calcium, Ionized 1.18 mmol/L (1.12-1.30); Hemoglobin (Hb) 14.8 g/dL (14.0-18.0); O2 Tension (PaO2) 104.4 mmHg (> 60.0); Potassium - ABG Lab 3.48 mmol/L (3.70-5.30); pH, Arterial 7.42 (7.35-7.45)
[2019-02-06 06:50] LABS: ALV-art Gradient 80.875 (0-20); CO2 Tension 22.9 mmHg (35.0-45.0); Puncture Site LRA
[2019-02-06] MEDS ORDERED: DISCONTINUE PREVIOUS NARCOTIC PAIN MEDICATIONS AND BENZODIAZEPINES FS SCH (07:21)
[2019-02-06] MEDS ORDERED: fentaNYL Citrate/PF 2,000 MCG in Sodium Chloride 0.9% 60 ML IV SCH (07:21)
[2019-02-06] MEDS ORDERED: Morphine 2 MG/ML SYRINGE SLOW IVP PRN (07:21)
[2019-02-06] MEDS ORDERED: Lorazepam 2 MG/ML VIAL SLOW IVP PRN (07:21)
[2019-02-06] MEDS ORDERED: Propofol BOLUS 1,000 MG/100 ML VIAL IV PRN (07:21)
[2019-02-06] MEDS ORDERED: Fentanyl BOLUS 250 ML IVPB PRN (07:21)
[2019-02-06 07:36] LABS: Lactic Acid 12.8 mmol/L (0.5-2.2)
[2019-02-06] MEDS ORDERED: levETIRAcetam In NaCl (Iso-Os) 750 MG in Premix Bag 1 BAG IVPB SCH ×2 (07:42→09:00)
[2019-02-06 07:47] LABS: Troponin I 0.012 ng/mL (< 0.028)
[2019-02-06] MEDS ORDERED: Potassium Phosphate 15 MMOL in Sodium Chloride 0.9% 250 ML 250 ML IVPB SCH (08:00)
--- NOTE | 2019-02-06 08:33 | PDOC.EVN ---
Event Note - Event Note Event Note: Code koffi called at 0604 to Mr. Dai. Upon arriving patient was unresponsive , tachycardic and decision was made to intubate due to concern for airway protection. Pt intubated w/ glidescope with ETT secured at 23cm at the lips. Patient was transferred to ICU, stable condition.
--- NOTE | 2019-02-06 08:39 | RAD ---
CHEST 1 VIEW: Date: 02/06/19 INDICATION: Code Blue exam. COMPARISON: Prior exam dated 01/09/19. FINDINGS: Post CABG change is stable to comparison. Patient is intubated with the endotracheal tube seen at the level of the thoracic inlet. Lungs are clear. Pacer pads overlie the chest wall. No pleural effusion or pneumothorax is evident. No acute osseous abnormality is noted. IMPRESSION: No acute cardiopulmonary abnormality. POS: BH
[2019-02-06] MEDS ORDERED: methylPREDNISolone Sod Succ 40 MG VIAL IVP SCH (09:00)
[2019-02-06] MEDS ORDERED: Bacteriostatic Water 30 ML VIAL FS PRN (09:00)
[2019-02-06] MEDS: Propofol 1,000 MG/100 ML VIAL IV PRN ×2 (09:46→17:10)
--- NOTE | 2019-02-06 09:47 | CON ---
DATE OF CONSULTATION: HISTORY OF PRESENT ILLNESS: Koffi Dai is an 83-year-old gentleman, who was intubated for progressive respiratory failure. We have been consulted regarding his vent management. The patient has been in the hospital since 02/04/2019. Transferred from the rehab after he apparently sustained a fall. He did decondition over there following herpes zoster eye infection. He broken the right hip. He has undergone surgery. He was doing reasonably well. It is unclear what transpired today, but apparently nader rain was called, and the patient was unresponsive, but still breathing, was intubated to protect his airway. He is now on the vent on sedation. He is here last month with a discharge diagnoses of sepsis, respiratory failure, pneumonia, atrial flutter ablation, herpes zoster, carotid disease, hypertension, seizure disorder, multiple falls. PAST SURGICAL HISTORY: Otherwise included bypass surgery, recent hip surgery. MEDICATIONS: His medicines from the rehab included; 1. Atorvastatin. 2. Aspirin. 3. Ascorbic acid. 4. Eliquis 2.5 twice a day. 5. Norvasc 5. 6. Keppra 750 twice a day. 7. Toprol-XL 25. 8. Zestril 10. ALLERGIES: NONE. SOCIAL HISTORY: Tobacco at this time unobtainable. REVIEW OF SYSTEMS: Unobtainable. PHYSICAL EXAMINATION: GENERAL: Intubated on the vent. VITAL SIGNS: Blood pressure 90/80, pulse 80, respirations 18, and saturations 99%. CHEST: Decreased breath sounds. No wheezing, though there are bilateral rhonchi. CARDIAC: Normal S1 and S2. No gallops. ABDOMEN: No masses. LABORATORY DATA: PO2 is 104, platelet count normal. Chest x-ray shows no acute infiltrates. IMPRESSION: 1. Respiratory failure, etiology unclear. 2. Carotid disease. 3. Recent herpes zoster infection. 4. Encephalopathy. PLAN: Neb treatments, steroids initiated. Continue with DVT prophylaxis. He was started on empiric neb treatments, steroids, and antibiotics. We will follow up. Forty five minutes critical time. Job ID: [id number]
[2019-02-06] MEDS: Sodium Chloride 0.9% 1,000 ML IV SCH ×2 (09:49→13:44)
[2019-02-06] MEDS: Ascorbic Acid 500 mg Chewable Tablet PO SCH ×2 (09:50→20:53)
[2019-02-06] MEDS: Famotidine 20 MG TAB PO SCH (09:50)
[2019-02-06] MEDS: Calcium Carbonate 500 MG TAB PO SCH (09:50)
[2019-02-06] MEDS: levETIRAcetam In NaCl (Iso-Os) 750 MG in Premix Bag 1 BAG IVPB SCH ×2 (09:53→21:07)
[2019-02-06] MEDS: Senokot S 8.6-50 MG TAB PO SCH (10:03)
[2019-02-06] MEDS: Polyethylene Glycol 3350 17 GM Packet PO SCH (10:03)
[2019-02-06] MEDS: Saccharomyces boulardii 250 MG CAP PO SCH (10:03)
[2019-02-06] MEDS: Potassium Chloride 20 MEQ TAB PO SCH (10:03)
[2019-02-06] MEDS ORDERED: Vancomycin HCl 1 GM in Premix Bag 1 BAG IVPB SCH (10:15)
[2019-02-06] MEDS ORDERED: CEFAZOLIN 2 GM in Premix Bag 1 BAG IVPB SCH (10:15)
--- NOTE | 2019-02-06 10:38 | CT ---
Exam: CT brain PROVIDED CLINICAL HISTORY: Altered mental status COMPARISON: 02/04/2019 FINDINGS: The ventricular system is normal in size and morphology. No evidence for intracranial hemorrhage or mass effect. The extracranial soft tissues and osseous structures demonstrate an unremarkable CT appearance. Chronic microvascular ischemic changes are redemonstrated involving the cerebral white ma tter. IMPRESSION: No evidence for intracranial hemorrhage or mass effect.
[2019-02-06 10:43] LABS: Lactic Acid 2.2 mmol/L (0.5-2.2)
[2019-02-06] MEDS: Metoprolol Tartrate 5 MG/5 ML VIAL IVP SCH ×3 (11:54→22:18)
[2019-02-06] MEDS ORDERED: methylPREDNISolone Sod Succ/PF 125 MG/2 ML VIAL IVP SCH (12:00)
[2019-02-06 12:51] LABS: Actual Bicarbonate (HCO3a) 21.5 mEq/L (22-28); Base Excess (BEa) -2.7 mEq/L (-2.0 to +3.0); CO2 Tension 35.2 mmHg (35.0-45.0); Calcium, Ionized 1.14 mmol/L (1.12-1.30); Carboxyhemoglobin (COHb) 0.5 gm% (0.0-3.0); Hemoglobin (Hb) 11.6 g/dL (14.0-18.0); O2 Tension (PaO2) 94.8 mmHg (> 60.0)
--- NOTE | 2019-02-06 13:17 | PRG ---
DATE OF SERVICE: 02/06/2019 SUBJECTIVE: The patient was moved to the ICU this morning after a code green was called. At that time, the patient was on telemetry and became very tachycardic with a heart rate in the 130s. When nursing went to check on him, the patient had altered mental status and was having some difficulty breathing. Subsequently, one of the residents responded to the code and intubated the patient. After intubation, he had no difficulty ventilating and RT reported other than the patient being a little bit anxious, he was doing fine on the vent. After the patient was transferred to the ICU, the Trauma Team was contacted and I evaluated the patient, including blood work, EKG, ABG, and repeat head CT. The patient does have a history of seizures. Keppra was restarted yesterday. However, he did not receive the medication for an unknown reason. All of his oral pain medications were either held or changed to the IV form. The patient was evaluated by myself and I did discuss the patient with Dr. Hayes. OBJECTIVE: VITAL SIGNS: Temperature 98.1, blood pressure 132/67, heart rate 92, respirations 14, and oxygen saturation 100% on room air. GENERAL: Elderly male, lying in ICU bed, intubated with no signs of acute distress. PULMONARY: Equal chest rise and fall. Clear breath sounds bilaterally. ET tube well secured at the lips with no difficulty ventilating. CARDIAC: Regular rate, but in atrial fibrillation, which is his baseline. No murmurs, gallops, or rubs. GI: Abdomen is soft, nontender, and nondistended. EXTREMITIES: 2+ pulses in all extremities. No significant swelling noted. The patient with purposeful movements when stopped sedation. He is, however, not able to follow commands at this time. LABORATORY FINDINGS: White count 7.7, hemoglobin 14.0, hematocrit 41.5, and platelets 185. Sodium 132, potassium 3.8, chloride 96, carbon dioxide 26, BUN 12, creatinine 0.65, and glucose 119. Lactate 12.8, then followup 2.2. Phosphorus 2.8 and magnesium 1.8. Troponin is 0.012. Prolactin 22.29 and cortisol 30.6. ABG, pH 7.42, pCO2 of 22.9, pO2 of 104.4, oxygen saturation 98%, O2 content 20.2, and base excess -7.5. Ionized calcium 1.18. DIAGNOSTIC FINDINGS: Chest x-ray completed this morning demonstrates no acute cardiopulmonary abnormalities. CT of the brain demonstrates no evidence of intracranial hemorrhage or mass effect. ASSESSMENT: 1. Status post fall, on Eliquis. 2. Right subcapital hip fracture. 3. Seizure, resolved. 4. History of hypertension, atrial fibrillation, coronary artery bypass grafting, coronary artery disease, herpes simplex virus, and seizures. PLAN: The patient will continue to be intubated and sedated and will go to the OR tomorrow with Dr. Flores. We changed his p.o. metoprolol to IV. He did not receive his Keppra yesterday evening and it was changed to 750 IV today. Continue DuoNebs, propofol drip, fentanyl drip, and Ativan p.r.n. We will hold other p.o. medications for now. Continue normal saline at 70 an hour. Replace K-Phos today. We will repeat ABG this evening to assure that his CO2 is not still low and his pH is adequate. Continue to watch for signs of seizures. Continue to hold Eliquis. The patient was discussed with Dr. Hayes this morning after his code sia. Job ID: [id number]
[2019-02-06] MEDS: LEVETIRACETAM 750 MG PO SCH ×2 (13:41→13:42)
[2019-02-06 14:37] LABS: Puncture Site LRA
[2019-02-06] MEDS ORDERED: Enoxaparin Sodium 30 MG/0.3 ML SYRINGE SC SCH (18:00)
[2019-02-06] MEDS: Famotidine/PF 20 mg/2ml Vial SLOW IVP SCH (20:53)
[2019-02-06] MEDS: Atorvastatin Calcium 40 MG TAB PO SCH (20:53)
[2019-02-07] MEDS: Propofol 1,000 MG/100 ML VIAL IV PRN (01:21)
[2019-02-07] MEDS: Metoprolol Tartrate 5 MG/5 ML VIAL IVP SCH ×4 (04:14→22:31)
[2019-02-07] MEDS: Sodium Chloride 0.9% 1,000 ML IV SCH ×2 (04:14→15:21)
[2019-02-07 06:38] LABS: #Eosinphils 0.3 thou/uL (0.0-0.7); #Lymphocytes 1.1 thou/uL (1.20-3.40); #Monocytes 0.8 thou/uL (0.11-0.59); #Neutrophils 5.8 thou/uL (1.40-6.50); %Basophils 0.6 % (0.0-1.0); %Eosinophils 4.2 % (0.0-10.0); %Lymphocytes 13.5 % (21.0-51.0); %Neutrophils 71.8 % (42.0-75.0); Hemoglobin 11.8 g/dL (14.0-18.0); Mean Corpuscular HGB CONC 33.7 g/dL (32.0-36.0); Mean Corpuscular Hemoglobin 32.4 pg (27.0-31.0); Mean Platelet Volume 6.7 fL (7.4-10.4); Platelet Count 173 thou/uL (130-400); RBC Distribution Width 12.7 % (11.5-14.5); Red Blood Cell (RBC) Count 3.65 mill/uL (4.70-6.10)
[2019-02-07 07:07] LABS: Anion Gap 11 mmol/L (10-20); BUN (Urea Nitrogen) 15 mg/dL (8.4-25.7); Calc. Creatinine Clearance 68 mL/min (70-130); Calcium 8.5 mg/dL (7.8-10.44); Carbon Dioxide 23 mmol/L (23-31); Chloride 104 mmol/L (98-107); Estimated GFR-MDRD Greater than 90; Glucose 96 mg/dL (83-110); Phosphorus 4.5 mg/dL (2.3-4.7); Potassium 3.6 mmol/L (3.5-5.1); Sodium 134 mmol/L (136-145)
[2019-02-07] MEDS ORDERED: Fentanyl 100 MCG/2 ML VIAL ONE ×2 (07:26→09:29)
[2019-02-07 07:32] LABS: Actual Bicarbonate (HCO3a) 21.3 mEq/L (22-28); Base Excess (BEa) -2.4 mEq/L (-2.0 to +3.0); CO2 Tension 33.1 mmHg (35.0-45.0); Carboxyhemoglobin (COHb) 0.7 gm% (0.0-3.0); Hemoglobin (Hb) 11.7 g/dL (14.0-18.0); O2 Tension (PaO2) 90.3 mmHg (> 60.0); Potassium - ABG Lab 3.53 mmol/L (3.70-5.30); pH, Arterial 7.43 (7.35-7.45)
[2019-02-07 07:39] LABS: ALV-art Gradient 46.575 (0-20); Puncture Site LRA
[2019-02-07] MEDS ORDERED: Tranexamic Acid 1,000 MG/10 ML VIAL ONE (08:08)
[2019-02-07] MEDS ORDERED: Sodium Chloride 0.9% 100 ML ONE (08:09)
--- NOTE | 2019-02-07 08:12 | RAD ---
CHEST 1 VIEW: Date: 02/07/19 INDICATION: Intubation. COMPARISON: Prior exam dated 02/06/19. FINDINGS: Post CABG change is stable. Gastric catheter has been intervally placed and projects beyond the left hemidiaphragm and beyond the field of view. ET tube tip is unchanged. Chronic lung changes are simila r appearing. No consolidation, pleural effusion, or pneumothorax evident. No acute osseous abnormalit y is evident. IMPRESSION: Stable tubes and lines. No acute cardiopulmonary abnormality. POS: BH
[2019-02-07] MEDS ORDERED: Midazolam HCl 5 mg/5 ml Vial IVPB PRN (08:17)
[2019-02-07] MEDS ORDERED: cefTRIAXone\\ROCEPHIN 1 GM in Sodium Chloride 0.9% 100 ML IVPB SCH (09:00)
[2019-02-07] MEDS ORDERED: Amlodipine 5 MG TAB PO SCH (09:00)
[2019-02-07] MEDS ORDERED: Enoxaparin Sodium 40 MG/0.4 ML SYRINGE SC SCH (09:00)
[2019-02-07] MEDS: Ascorbic Acid 500 mg Chewable Tablet PO SCH ×2 (10:25→21:03)
[2019-02-07] MEDS: Famotidine/PF 20 mg/2ml Vial SLOW IVP SCH ×2 (10:25→20:55)
--- NOTE | 2019-02-07 10:35 | RAD ---
EXAM: XR Hip Rt 2-3 View PROVIDED CLINICAL HISTORY: Postop COMPARISON: 02/04/2019 FINDINGS: Interval postoperative changes of right hip arthroplasty. Associated soft tissue gas. IMPRESSION: As above.
--- NOTE | 2019-02-07 11:17 | PRG ---
DATE OF SERVICE: 02/07/2019 SUBJECTIVE: An 83-year-old gentleman, status post hip surgery. Postop on the vent. OBJECTIVE: VITAL SIGNS: Pulse 73, blood pressure 170/70, respiratory rate 18, pulse 80. CHEST: Decreased breath sounds. No wheezing. CARDIAC: Normal S1, S2. No gallops. ABDOMEN: Soft. IMAGING STUDIES: Chest x-ray was clear. PO2 is 90, pCO2 . White count 8000, H and H is unremarkable. Lytes are normal. IMPRESSION: 1. Status post fall with fractured hip. 2. Seizures. 3. Atrial fibrillation. 4. Respiratory failure, etiology unclear. PLAN: Started nebs, steroids. Wean as tolerated. Continue antiseizure medication. One-half hour of critical care time. Job ID: [id number]
[2019-02-07] MEDS ORDERED: Cyclobenzaprine 10 MG TAB PO PRN (11:35)
[2019-02-07] MEDS ORDERED: Ketorolac Tromethamine 30 MG/ML VIAL IVP SCH (11:45)
[2019-02-07] MEDS ORDERED: Acetaminophen 1,000 MG in Premix Bag 1 BAG IVPB SCH (12:00)
--- NOTE | 2019-02-07 12:19 | PRG ---
DATE OF SERVICE: 02/07/2019 SUBJECTIVE: The patient remains in the critical care unit. He has been awaiting surgical procedure by Orthopedics, which he underwent this morning. He tolerated it well. He had no issues overnight. We are currently waiting for the oim consultant to evaluate him for extubation. Postoperatively, we will resume his pain medications and start Physical and Occupational Therapy and discuss placement. OBJECTIVE: VITAL SIGNS: Temperature 98.9, heart rate 83, blood pressure 170/71, respirations 21, oxygen saturations 100% on mechanical ventilator. GENERAL: The patient appears to be resting comfortably in bed. He has not had his sedation turned off long enough to assess his mental status at this time. LUNGS: Have some scattered rhonchi. HEART: Regular rate and rhythm. ABDOMEN: Soft, flat, nontender with hypoactive bowel sounds. EXTREMITIES: Neurovascularly intact x4. The patient does withdraw to pain equally bilaterally. Postop dressing is clean, dry, and intact. LABORATORY FINDINGS: White blood cell count 8.0, hemoglobin 11.8, hematocrit 35.1, platelets 173. Sodium 134, potassium 3.6, chloride 104, CO2 of 23, BUN 15, creatinine 0.78, glucose 96, magnesium 2.0, phosphorus 4.5. AP chest x-ray this morning shows stable tubes and lines. No acute cardiopulmonary abnormality. ASSESSMENT: 1. Status post ground level fall, on Eliquis. 2. Status post open reduction and internal fixation of right subcapital hip fracture. 3. History of seizure. PLAN: Plan will be to resume his medications, pain control, pulmonary toilet, gastritis, mechanical VTE prophylaxis and start Physical and Occupational therapy as soon as possible. Discussed placement. The patient was discussed with Dr. Cr and Dr. Hayes this morning. Job ID: [id number]
[2019-02-07] MEDS: methylPREDNISolone Sod Succ/PF 125 MG/2 ML VIAL IVP SCH ×2 (12:39→18:44)
[2019-02-07] MEDS ORDERED: DC Sedation Protocol FS ONE (13:02)
[2019-02-07] MEDS: Acetaminophen 1,000 MG in Premix Bag 1 BAG IVPB SCH ×2 (15:05→20:26)
[2019-02-07] MEDS ORDERED: Esmolol 100 MG/10 ML VIAL ONE (15:37)
[2019-02-07] MEDS ORDERED: Rocuronium Bromide 10 MG/ML (10ML VIAL) ONE (15:37)
--- NOTE | 2019-02-07 16:15 | OP ---
DATE OF PROCEDURE: 02/07/2019 Dictated by BAMBI Velez, for surgeon, Dr. Travis Flores to sign. PREOPERATIVE DIAGNOSIS: Right hip femoral neck fracture. POSTOPERATIVE DIAGNOSIS: Right hip femoral neck fracture. PROCEDURE PERFORMED: Press-fit right hip monopolar hemiarthroplasty. SURGEON: Travis Flores MD [employer]NER FORMER MACHINE OPERATOR: Dion Velez PA-C ANESTHESIA: General via endotracheal tube. COMPONENTS USED: [facility] size 4 press-fit Accolade hip stem with a [facility] size 51 Unitrax monopolar, -4 neck length femoral head. FINDINGS: Right hip midcervical femoral displaced femoral neck fracture with hemarthrosis. ESTIMATED BLOOD LOSS: 300. DRAINS: None. SPECIMENS: None. COMPLICATIONS: None. COUNTS: Correct. INPUT: 600 mL crystalloid. OUTPUT: 100 mL of clear yellow urine. INDICATION FOR SURGERY: Koffi is an 83-year-old white male, who fell 2 days ago resulting in a right hip fracture. He has elected to proceed with right hip hemiarthroplasty for definitive treatment of this problem. PROCEDURE IN DETAIL: After informed consent was obtained in the preoperative holding area, the patient received preoperative antibiotics, was taken to the operative suite, and positioned appropriately on the operating table in the lateral decubitus position. The hip was then prepped and draped in usual sterile fashion. Prior to incision, a time-out was called and all members of the surgical team agreed upon site, surgeon, and patient. Once this was completed, an incision was made using a lateral approach 2 fingerbreadths above the tip of the trochanter and 2 fingerbreadths below the flare by palpation. The subcutaneous layer was opened with Bovie electrocautery and the IT band was encountered. This was identified and a dudley elevator was used to remove the adipose tissue from it. Once it was cleaned, Bovie and scissors were used to incise the IT band, exposing the lateral aspect of the trochanter and the abductor muscles. The abductor muscles were then reflected using Bovie electrocautery. The gluteus medius was also then reflected anteriorly and Charnley retractor was placed to hold this open. An anterior capsulotomy was performed, identifying the fracture hematoma at that time. Once the capsulotomy was completed, the neck cut was then made using the oscillating saw. Once the napkin ring of bone was removed using rongeur Le[place]ell, the femoral head was then removed using a corkscrew combination with Hohmann retractors. The appropriate size was then chosen and this was trialed and attention was then turned to femoral preparation. The cookie cutter was used, followed by intramedullary reamers and sequential broaching up to the appropriate size of press-fit stem. Once this was completed, we had good calcar fit and 1 fingerbreadth above the top of the lesser trochanter. We then malleted in the appropriate sized femoral prosthesis using a good strong press fit. Happy with our fit, we went ahead and trialed up to the appropriate neck length using shuck, internal and external rotation, and other maneuvers to identify good solid hip fit and finish, and without any dislocation at greater than 50-60 degrees of internal rotation with the hip flexed to 90 degrees. Shuck was negative as well. We then selected the appropriate neck length and endoprosthesis malleted firmly into the Henry taper. A reduction maneuver was then performed and we copiously irrigated the entire wound with normal saline. Again, we ran the hip through hip internal and external rotation flexed at 90 degrees and shuck being negative. After copious irrigation of 3 L of normal saline, the abductors were then reapproximated and stitched down using #2 Vicryl. The IT band was approximated with #2 Vicryl and closed with a running #2 Quill polypropylene stitch. Subcutaneous layer was closed with a running 0 Quill stitch and skin closure was accomplished with 3-0 Monocryl Quill stitch and Dermabond skin cement. All counts were correct. A sterile dressing was applied and the procedure was terminated without any complications. The airway was removed in the operative suite and the patient was taken to recovery room in stable condition. Job ID: [id number]
[2019-02-07] MEDS: Ketorolac Tromethamine 30 MG/ML VIAL IVP SCH (17:02)
[2019-02-07] MEDS: Atorvastatin Calcium 40 MG TAB PO SCH (20:59)
[2019-02-08] MEDS: Ketorolac Tromethamine 30 MG/ML VIAL IVP SCH ×2 (00:20→05:58)
[2019-02-08] MEDS: methylPREDNISolone Sod Succ/PF 125 MG/2 ML VIAL IVP SCH ×2 (00:22→05:58)
[2019-02-08] MEDS: Acetaminophen 1,000 MG in Premix Bag 1 BAG IVPB SCH ×2 (02:22→18:31)
[2019-02-08] MEDS: Sodium Chloride 0.9% 1,000 ML IV SCH ×2 (04:22→17:40)
[2019-02-08] MEDS: Metoprolol Tartrate 5 MG/5 ML VIAL IVP SCH (04:22)
[2019-02-08 04:34] LABS: #Lymphocytes 0.4 thou/uL (1.20-3.40); #Monocytes 0.2 thou/uL (0.11-0.59); #Neutrophils 6.7 thou/uL (1.40-6.50); %Basophils 0.1 % (0.0-1.0); %Eosinophils 0.1 % (0.0-10.0); %Lymphocytes 5.8 % (21.0-51.0); %Monocytes 2.6 % (0.0-10.0); %Neutrophils 91.5 % (42.0-75.0); Hemoglobin 10.9 g/dL (14.0-18.0); Mean Corpuscular Hemoglobin 32.3 pg (27.0-31.0); Mean Corpuscular Volume 95.1 fL (78.0-98.0); Mean Platelet Volume 6.5 fL (7.4-10.4); Platelet Count 152 thou/uL (130-400); RBC Distribution Width 12.1 % (11.5-14.5); Red Blood Cell (RBC) Count 3.37 mill/uL (4.70-6.10); White Blood Cell (WBC) Count 7.4 thou/uL (4.8-10.8)
[2019-02-08 04:52] LABS: Anion Gap 11 mmol/L (10-20); BUN (Urea Nitrogen) 14 mg/dL (8.4-25.7); Calc. Creatinine Clearance 77 mL/min (70-130); Calcium 8.5 mg/dL (7.8-10.44); Carbon Dioxide 25 mmol/L (23-31); Chloride 103 mmol/L (98-107); Estimated GFR-MDRD Greater than 90; Glucose 143 mg/dL (83-110); Magnesium 1.8 mg/dL (1.6-2.6); Phosphorus 3.1 mg/dL (2.3-4.7); Potassium 3.7 mmol/L (3.5-5.1); Sodium 135 mmol/L (136-145)
--- NOTE | 2019-02-08 08:42 | PRG ---
DATE OF SERVICE: 02/08/2019 SUBJECTIVE: This morning, he is awake, alert, responsive, he is extubated yesterday. No shortness of breath. No coughing. No wheezing. OBJECTIVE: VITAL SIGNS: Saturations 96% on room air, respirations 16, pulse 74, blood pressure 150/60. CHEST: No wheezing or crackles. CARDIAC: Normal S1, S2. No gallops. ABDOMEN: No masses. DIAGNOSTIC STUDIES: Chest x-ray was clear. White count 7000. Lytes are normal. IMPRESSION: 1. Status post respiratory failure. 2. Status post hip surgery. 3. Seizure disorder. PLAN: He can be transferred out of the ICU. Continue PT. Aggressive supportive care. We will follow in the ICU. Job ID: [id number]
[2019-02-08] MEDS: Polyethylene Glycol 3350 17 GM Packet PO SCH (09:19)
[2019-02-08] MEDS: Ibuprofen 600 MG TAB PO SCH ×3 (09:21→21:45)
[2019-02-08] MEDS: levETIRAcetam 500 MG TAB PO SCH ×2 (09:38→21:45)
[2019-02-08] MEDS: Senokot S 8.6-50 MG TAB PO SCH ×2 (09:39→21:51)
[2019-02-08] MEDS: Ascorbic Acid 500 mg Chewable Tablet PO SCH ×2 (09:39→21:51)
[2019-02-08] MEDS: Famotidine 20 MG TAB PO SCH ×2 (09:39→21:51)
--- NOTE | 2019-02-08 11:56 | PRG ---
DATE OF SERVICE: 02/08/2019 SUBJECTIVE: The patient remains in the critical care unit. He is postop day 1 status post right hip hemiarthroplasty. The patient did well overnight. He is tolerating clear liquids. His pain is controlled and he is likely to be moved upstairs to the surgical floor today. The patient should also start working with physical and occupational therapy today. OBJECTIVE: VITAL SIGNS: Temperature is 98.3, heart rate 81, blood pressure 149/80, respirations 19, and oxygen saturation 98% on room air. GENERAL: The patient is resting comfortably in bed. He was sleeping when we entered the room, but was awakened with verbal stimuli. He responded appropriately and had no complaints other than being hungry. HEENT: Unremarkable. LUNGS: Clear to auscultation bilaterally with good inspiratory and expiratory effort. HEART: Regular rate and rhythm. ABDOMEN: Soft, flat, and nontender with active bowel sounds. EXTREMITIES: Neurovascularly intact x4. Postop dressing is clean, dry, and intact. LABORATORY FINDINGS: White blood cell count 7.4, hemoglobin 10.9, hematocrit 32.0, and platelets 152. Sodium 135, potassium 3.7, chloride 103, CO2 of 25, BUN 14, creatinine 0.69, glucose 143, magnesium 1.8, and phosphorus 3.1. DIAGNOSTIC STUDIES: There were no radiographs to review this morning. ASSESSMENT: 1. Status post ground level fall. 2. Status post right hip fracture, status post right hip arthroplasty. 3. History of seizure. 4. Status post respiratory failure, resolved. PLAN: Plan will be to move the patient to the surgical floor. Resume p.o. medications. Advance his diet. Begin physical and occupational therapy and work on placement for the patient. The evaluation and examination were done with Dr. Dc this morning during rounds. Job ID: [id number]
[2019-02-08] MEDS: Acetaminophen 500 MG TAB PO SCH ×2 (12:16→17:39)
[2019-02-08] MEDS ORDERED: Enoxaparin Sodium 30 MG/0.3 ML SYRINGE SC SCH (18:00)
[2019-02-08] MEDS ORDERED: Enoxaparin Sodium 40 MG/0.4 ML SYRINGE SC SCH (18:00)
[2019-02-08] MEDS: Apixaban 2.5 MG TAB PO SCH (21:45)
[2019-02-08] MEDS: Atorvastatin Calcium 40 MG TAB PO SCH (21:51)
--- NOTE | 2019-02-08 22:43 | EKG ---
Test Reason : S/P CODE BLUE Blood Pressure : / mmHG Vent. Rate : 102 BPM Atrial Rate : 102 BPM P-R Int : 156 ms QRS Dur : 108 ms QT Int : 374 ms P-R-T Axes : 079 080 056 degrees QTc Int : 487 ms Sinus tachycardia Otherwise normal ECG When compared with ECG of 04-FEB-2019 10:37, Criteria for Anteroseptal infarct are no longer Present Confirmed by Jean NEGRETE ([id number]) on 02/08/2019 10:42:42 PM Referred By: [place] Confirmed By:Jean NEGRETE
[2019-02-09] MEDS: Acetaminophen 500 MG TAB PO SCH ×5 (00:28→23:48)
--- NOTE | 2019-02-09 09:16 | PRG ---
DATE OF SERVICE: 02/09/2019 SUBJECTIVE: Koffi Dai is a gentleman, status post respiratory failure and fractured hip, better. OBJECTIVE: VITAL SIGNS: Temperature 98, pulse 70, respirations 16, saturations 98% on room air, blood pressure 120/66. CHEST: No wheezing or crackles. CARDIAC: Normal S1, S2. No gallops. ABDOMEN: No masses. IMPRESSION: Status post fall, seizure activity, fractured hip status post surgery, respiratory rate resolved. Discontinue neb placement. Pulmonary follow at a distance. Job ID: [id number]
--- NOTE | 2019-02-09 09:21 | PRG ---
DATE OF SERVICE: 02/09/2019 SUBJECTIVE: Koffi is an 83-year-old white male, who is postop day 2 from a right hip monopolar hemiarthroplasty secondary to femoral neck fracture. He is confused this morning, but appropriately cooperative. OBJECTIVE: VITAL SIGNS: Temperature 98.5, pulse 78, respiratory rate 16 and nonlabored, and blood pressure 142/66. GENERAL: He is alert and responsive, but confused, inappropriate in some remarks, but overall pleasant and cooperative and is grossly nonfocal. SKIN: His incision is clean without any erythema. There is no strikethrough noted. EXTREMITIES: He is neurovascularly intact in both lower extremities and there is no external rotation or shortening noted. LABORATORY DATA: Hemoglobin and hematocrit 10.9 and 32.0. Sodium is a little high at 143. IMPRESSION: An 83-year-old white male, postoperative day 2, right hip monopolar hemiarthroplasty. PLAN: Continue current management. Placement to be determined. Job ID: [id number]
[2019-02-09] MEDS: levETIRAcetam 500 MG TAB PO SCH ×2 (09:56→21:26)
[2019-02-09] MEDS: Ascorbic Acid 500 mg Chewable Tablet PO SCH ×2 (09:56→21:23)
[2019-02-09] MEDS: Apixaban 2.5 MG TAB PO SCH ×2 (09:56→21:23)
[2019-02-09] MEDS: Senokot S 8.6-50 MG TAB PO SCH ×2 (09:57→21:27)
[2019-02-09] MEDS: Polyethylene Glycol 3350 17 GM Packet PO SCH (09:57)
[2019-02-09] MEDS: Ibuprofen 600 MG TAB PO SCH ×3 (09:57→21:26)
--- NOTE | 2019-02-09 13:01 | PRG ---
DATE OF SERVICE: 02/09/2019 SUBJECTIVE: The patient is currently on the surgical floor. He is status post a ground level fall when he sustained a right hip fracture. He is postop day #2 status post hemiarthroplasty of the same. He tolerated the procedure well. He was moved from the critical care unit yesterday to the surgical floor to continue his therapy and await placement. Overnight, he had no issues. This morning, he is awake and far more alert than previously. He still has some confusion, but he has markedly improved. OBJECTIVE: VITAL SIGNS: Temperature 98.5, heart rate 78, blood pressure 143/66, respirations 16, and oxygen saturation 97%. GENERAL: The patient is resting comfortably in bed. He is awake and verbally responsive. Follows simple commands. HEENT: Unremarkable. LUNGS: Clear to auscultation with good inspiratory and expiratory effort. HEART: Regular rate and rhythm. ABDOMEN: Soft, flat, and nontender with active bowel sounds. PELVIS: Stable. Postop dressing is clean, dry, and intact. EXTREMITIES: Neurovascularly intact x4. DIAGNOSTIC STUDIES: There are no labs or radiographs to review this morning. ASSESSMENT: 1. Status post ground level fall. 2. Status post right hip fracture, status post right hip arthroplasty. 3. History of seizure. 4. Status post respiratory failure, resolved. PLAN: Plan will be to continue all home medications, physical and occupational therapy, pain management, and await placement. The patient was seen this morning during rounds with Dr. Dc. Job ID: [id number]
[2019-02-09] MEDS: Sodium Chloride 0.9% 1,000 ML IV SCH (19:25)
[2019-02-09] MEDS: Atorvastatin Calcium 40 MG TAB PO SCH (21:25)
[2019-02-10] MEDS: Acetaminophen 500 MG TAB PO SCH ×3 (05:46→12:17)
--- NOTE | 2019-02-10 07:41 | PRG ---
DATE OF SERVICE: 02/10/2019 SUBJECTIVE: Suhas is feeling little better today. I believe, he is able to do [id number] transfers with assistance. He is working with therapy and the plan is for either rehab screen or swing bed placement. OBJECTIVE: GENERAL: He is alert and responsive and appropriate with the examiner. He does not appear to be confused this morning as he was yesterday. VITAL SIGNS: Temperature 99; pulse 82; respiratory rate 16, unlabored; and blood pressure is 130/61. EXTREMITIES: There is no strike through. No bleeding. No external rotation or leg length discrepancy. IMPRESSION: An 83-year-old white male, postop day 4, right hip hemiarthroplasty as treatment for femoral neck fracture. Hospital day 6. PLAN: Continue current care. Probable transfer in the near future. Hip precautions. Job ID: [id number]
[2019-02-10] MEDS: Ascorbic Acid 500 mg Chewable Tablet PO SCH (09:10)
[2019-02-10] MEDS: levETIRAcetam 500 MG TAB PO SCH (09:10)
[2019-02-10] MEDS: Ibuprofen 600 MG TAB PO SCH ×2 (09:10→14:45)
[2019-02-10] MEDS: Apixaban 2.5 MG TAB PO SCH (09:55)
[2019-02-10] MEDS: Polyethylene Glycol 3350 17 GM Packet PO SCH (09:57)
[2019-02-10] MEDS: Senokot S 8.6-50 MG TAB PO SCH (14:45)
[2019-02-10 15:56] VITALS: BP 159/66; TEMP 98.4
--- NOTE | 2019-02-10 16:33 | DIS ---
DATE OF ADMISSION: 02/04/2019 DATE OF DISCHARGE: 02/10/2019 ADMISSION DIAGNOSES: 1. Status post ground level fall. 2. Right subcapital hip fracture. 3. 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 4. History of atrial fibrillation, treated with cardiac ablation. 5. History of coronary artery disease. 6. History of hypertension. 7. History of Eliquis use. 8. History of seizure disorder. CONSULTATIONS: Orthopedics, Dr. Sung and Dr. Flores. PROCEDURES: Right hip hemiarthroplasty. SUMMARY: The patient is an 83-year-old man, who had a ground level fall in which he sustained the above injuries. The patient had his initial surgery delayed due to his Eliquis use. While on the telemetry unit, it appeared that the patient may have had an unwitnessed seizure, was noted to have some respiratory issues and altered mental status, underwent intubation and was transferred to the Critical Care Unit. Until the following day, the patient did appear to have a seizure, confirmed by his elevated prolactin. The patient had his Keppra resumed and the following day, he was able to undergo his above orthopedic procedure, which he tolerated well. The patient remained on the critical care unit for another day and was eventually moved to the surgical floor where he would begin physical and occupational therapy. The patient had come from inpatient rehab and was able to be discharged back there. During his stay, the patient has had multiple episodes of his headache related to his HSV infection. On the day of discharge, he had a mild headache, but otherwise was doing well. He is tolerating a diet. His bowel function had returned. The patient will follow up with Dr. Flores in 10 to 14 days or sooner as needed. The patient was resumed on all of his home medications to include his Plavix at time of discharge. The patient may follow up with the Trauma Clinic as needed. The patient should follow up with his primary care provider and Neurology as needed also. Job ID: [id number]
== END 2019-02-10 17:15 | DRG 469 ==
LOC: ERS 10:16 → ERHOLD 12:50 → 2NO 15:47 → CCU 02-06 06:33 → SURG A 02-08 18:37
PROVIDERS: ADMIT Specialist; ATTEND Specialist
PROC: 0BH18EZ Insertion of Endotracheal Airway into Trachea, Via Natural or Artificial Opening Endoscopic (ICD-10-PCS; 2019-02-06)
PROC: 5A1945Z Respiratory Ventilation, 24-96 Consecutive Hours (ICD-10-PCS; 2019-02-06)
PROC: 0SRR0JA Replacement of Right Hip Joint, Femoral Surface with Synthetic Substitute, Uncemented, Open Approach (ICD-10-PCS; principal; 2019-02-07)
DX: S72.011A Unspecified intracapsular fracture of right femur, initial encounter for closed fracture (principal); J96.90 Respiratory failure, unspecified, unspecified whether with hypoxia or hypercapnia; I10 Essential (primary) hypertension; I48.91 Unspecified atrial fibrillation; I25.10 Atherosclerotic heart disease of native coronary artery without angina pectoris; W18.30XA Fall on same level, unspecified, initial encounter; G40.909 Epilepsy, unspecified, not intractable, without status epilepticus; B00.9 Herpesviral infection, unspecified; E78.5 Hyperlipidemia, unspecified; Z79.01 Long term (current) use of anticoagulants; Z79.899 Other long term (current) drug therapy; Z95.1 Presence of aortocoronary bypass graft; Z79.82 Long term (current) use of aspirin; R29.6 Repeated falls
CPT/HCPCS: 36415; 36416; 70450; 71045; 72125; 80048; 81003; 82533; 82805; 83605; 83735; 84100; 84146; 84484; 85025; 90471; 90670; 92950; 93005; 93010; 94002; 94003; 94640; 96374; G0009; G0390; J0131; J0360; J0690; J1650; J1885; J1953; J2270; J2704; J2930; J3010; J3475; J3490; J7050; J7620; S0028

== ENCOUNTER 2019-02-23 07:11 | Inpatient (IN) | payer MEDICARE, BC, OTHER ==
--- NOTE | 2019-02-23 08:15 | HP ---
CHIEF COMPLAINT: Right hip pain. HISTORY OF PRESENT ILLNESS: Koffi is an 83-year-old white male, who I saw yesterday on consult for amplification of right hip pain. His surgical history goes back approximately 2 weeks when he had a femoral neck fracture. He underwent right hip hemiarthroplasty by Dr. Flores and convalesced in the hospital postoperative for few days and then ultimately transferred to [facility] inpatient rehabilitation. He has been there for approximately 12 days and last week he was doing well with ambulatory distance of about 75 to 80 feet. The of last week, he began to have discomfort pain and scant drainage from his right hip wound and this is amplified over the last 3 to 4 days with a fever to 101 documented, and blood cultures, one of which demonstrated methicillin-resistant Staph aureus. We were called to re-evaluate the patient in the rehabilitation setting and have felt that the patient needs to be readmitted and explored. 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 PAST SURGICAL HISTORY: Right hip hemiarthroplasty, 4-vessel coronary artery bypass graft. MEDICATIONS: 1. Norvasc. 2. Atorvastatin. 3. Keppra. 4. Lisinopril. 5. Toprol. 6. . ALLERGIES: PATIENT CLAIMS SHELLFISH. SOCIAL HISTORY: He is . is at the bedside. PHYSICAL EXAMINATION: VITAL SIGNS: See nurse's notes. HEAD: Normocephalic, atraumatic. GENERAL: He is alert and oriented to person, place, time, situation, grossly nonfocal, responsive, appropriate with examiner. CHEST: Clear to auscultation bilaterally. HEART: Irregularly irregular. This is a chronic problem for him. MUSCULOSKELETAL: Visual inspection of the right hip and lower extremity demonstrates the patient to be in significant pain. He has edematous changes around his incision and I can squeeze a little bit of serous drainage out of the upper proximal two-thirds of the drainage of the incision, but his skin sutures appear to be intact and I see no significant erythema other than a small patch at the distal end of the incision. The tobi-incisional edema is noticeable and quite tender to palpation all the way down to the knee. Range of motion of the hip is virtually impossible as the patient is in extreme pain with attempts at this. LABORATORY DATA: Please see the laboratory dated 02/18. IMAGING STUDIES: AP and lateral right hip demonstrate some air-fluid changes noted in the soft tissues. On AP view, there were no fractures identified. Prosthesis appear stable. Soft tissue swelling is appreciated. IMPRESSION: 1. Right hip soft tissue infection, suspect methicillin-resistant Staphylococcus aureus. 2. Atrial fibrillation. 3. Prior cerebrovascular accident. 4. Coronary atherosclerosis. 5. Hypertension. PLAN: 1. The patient will be transferred over to Day Stay on 02/23/2019 for preadmission and he has been posted for an incision and drainage, washout, exploration of the right hip. 2. The risks, benefits, options, alternatives, and rationale for proceeding with a right hip incision and drainage, washout, exploration has been explained in great detail to the patient and he is ready to proceed. All questions were answered. No guarantee of outcome has been stated or implied. 3. Please see orders. Job ID: [id number]
[2019-02-23] MEDS ORDERED: Ondansetron PF 4 MG/2 ML Vial IVP PRN (12:50)
[2019-02-23] MEDS ORDERED: HYDROcodone/Acetaminophen 10/325 mg Tablet PO PRN (12:50)
[2019-02-23] MEDS ORDERED: Zolpidem Tartrate 5 MG TAB PO PRN (12:50)
[2019-02-23] MEDS ORDERED: Acetaminophen 325 MG TAB PO PRN (12:50)
[2019-02-23] MEDS ORDERED: diphenhydrAMINE 25 MG CAP PO PRN (12:50)
[2019-02-23] MEDS ORDERED: Promethazine HCl 25 MG/ML VIAL IM PRN ×2 (12:50→15:27)
[2019-02-23] MEDS ORDERED: Midazolam HCl 2 mg/2 ml Vial ONE (12:54)
[2019-02-23] MEDS ORDERED: Fentanyl 100 MCG/2 ML VIAL ONE ×4 (12:54→16:10)
[2019-02-23] MEDS ORDERED: Tranexamic Acid 1,000 MG in Sodium Chloride 0.9% 100 ML IVPB SCH (13:00)
[2019-02-23] MEDS ORDERED: Tobramycin Sulfate 1.2 GM VIAL ONE (13:05)
[2019-02-23] MEDS ORDERED: Polyethylene Glycol 3350 17 GM Packet PO PRN (13:05)
[2019-02-23] MEDS ORDERED: Sodium Chloride 0.9% 100 ML ONE (13:09)
[2019-02-23] MEDS ORDERED: Tranexamic Acid 1,000 MG/10 ML VIAL ONE (13:09)
[2019-02-23] MEDS ORDERED: Ondansetron HCl/PF 4 MG/2 ML Vial IVP PRN (15:27)
[2019-02-23] MEDS ORDERED: Promethazine HCl 25 MG/ML VIAL SLOW IVP PRN (15:27)
--- NOTE | 2019-02-23 16:31 | RAD ---
Exam: Right hip 2 views: HISTORY: Postop total hip COMPARISON: 02/19/2019 Findings/impression: New total hip replacement changes. No dislocation or periprostatic fracture.
[2019-02-23] MEDS: Ascorbic Acid 500 mg Chewable Tablet PO SCH (21:01)
[2019-02-23] MEDS: Atorvastatin Calcium 40 MG TAB PO SCH (21:01)
[2019-02-23] MEDS: Lisinopril 10 MG TAB PO SCH (21:02)
[2019-02-23] MEDS: Sulfameth/Trimethoprim DS 800-160mg TAB PO SCH (21:03)
[2019-02-23] MEDS: Pregabalin 50 MG CAP PO SCH (21:03)
[2019-02-23] MEDS: Acetaminophen 500 MG TAB PO SCH (21:08)
[2019-02-23] MEDS: Apixaban 2.5 MG TAB PO SCH (22:35)
[2019-02-24] MEDS: Acetaminophen 500 MG TAB PO SCH ×4 (00:49→17:36)
[2019-02-24] MEDS: Vancomycin HCl 1.5 GM in Sodium Chloride 0.9% 250 ML 300 ML IVPB SCH ×2 (00:49→12:55)
[2019-02-24 05:34] LABS: Hemoglobin 8.6 g/dL (14.0-18.0); Mean Corpuscular HGB CONC 33.9 g/dL (32.0-36.0); Mean Corpuscular Hemoglobin 32.5 pg (27.0-31.0); Mean Corpuscular Volume 95.9 fL (78.0-98.0); Mean Platelet Volume 6.4 fL (7.4-10.4); Platelet Count 385 thou/uL (130-400); RBC Distribution Width 12.3 % (11.5-14.5); Red Blood Cell (RBC) Count 2.65 mill/uL (4.70-6.10); White Blood Cell (WBC) Count 11.1 thou/uL (4.8-10.8)
[2019-02-24 05:44] VITALS: BMI 23.5
[2019-02-24] MEDS: Apixaban 2.5 MG TAB PO SCH ×2 (08:44→19:36)
[2019-02-24] MEDS: Saccharomyces boulardii 250 MG CAP PO SCH (08:44)
[2019-02-24] MEDS: Multivitamin W/ Minerals 1 TAB PO SCH (08:44)
[2019-02-24] MEDS: Sulfameth/Trimethoprim DS 800-160mg TAB PO SCH (08:44)
[2019-02-24] MEDS: Calcium Carbonate 500 MG TAB PO SCH (08:44)
[2019-02-24] MEDS: Amlodipine 5 MG TAB PO SCH (08:44)
[2019-02-24] MEDS: Ascorbic Acid 500 mg Chewable Tablet PO SCH ×2 (08:44→22:12)
[2019-02-24] MEDS: Potassium Chloride 20 MEQ TAB PO SCH (08:44)
[2019-02-24] MEDS: Lisinopril 10 MG TAB PO SCH ×2 (08:45→22:11)
[2019-02-24] MEDS: Senokot S 8.6-50 MG TAB PO SCH ×2 (08:45→22:11)
[2019-02-24] MEDS: Pregabalin 50 MG CAP PO SCH ×2 (08:45→22:10)
[2019-02-24] MEDS: Aspirin 81 mg Enteric Coated Tablet PO SCH (08:45)
[2019-02-24] MEDS: Ferrous Gluconate 324 MG TAB PO SCH ×2 (08:45→17:36)
--- NOTE | 2019-02-24 08:45 | OP ---
DATE OF PROCEDURE: 02/23/2019 PREOPERATIVE DIAGNOSIS: Infected right hemiarthroplasty. POSTOPERATIVE DIAGNOSIS: Infected right hemiarthroplasty. PROCEDURE PERFORMED: Removal of right hip implant and placement of antibiotic spacer. DEVELOPMENT REPRESENTATIVE: Dion Velez PA-C BLOOD LOSS: About 350. SPECIMENS: None. DRAINS: None. COMPLICATIONS: None. The patient already has positive cultures for MRSA. DESCRIPTION OF PROCEDURE: The patient was taken to the operating room, where general anesthesia was induced. The patient was placed in the left lateral decubitus position. He is already on vancomycin for the last several days. His old incision was opened and dissection carried down to the IT band. Purulence was encountered and irrigation was performed. We irrigated and removed the purulent material. The hip was dislocated. The stem was extracted. I broached the canal. I over broached with slightly larger broach and cleaned it with a femoral canal brush. Irrigated the acetabulum to make sure there was no remaining pus pockets around the hip joint. I then mixed 3 g of vancomycin and 2.4 g of tobramycin cemented the size [address] with a fairly sloppy technique of the cement in case if it has to be removed in the future. The size 51 head with a minus 4 neck was applied and hip was reduced without difficulty. Irrigation was performed again. Abductors were repaired with 2-0 Vicryl, IT band was repaired with #2 Vicryl and #2 Quill, subcu was closed with 0 Quill, skin was closed with 2-0 Prolene. Sterile dressings applied. Job ID: [id number]
[2019-02-24] MEDS ORDERED: Prevnar 13-Val Conj/PF 0.5 ML SYRINGE IM ONE (09:00)
--- NOTE | 2019-02-24 13:51 | PRG ---
DATE OF SERVICE: 02/24/2019 SUBJECTIVE: Koffi is an 83-year-old white male, who is postop day 1 from a right hip septic arthroplasty revision secondary to MRSA infection of the soft tissues. Subjectively, he feels better. He has very little in the way of complaints and pain, and he rested well last night. OBJECTIVE: VITAL SIGNS: Temperature 98.4, pulse 98, respiratory rate 18, blood pressure 126/61. GENERAL: He is alert and responsive, although little slow with the examiner, but appropriate. EXTREMITIES: Visual inspection of the right hip demonstrates him to have little edema on the inferior aspect of the tobi-incisional area, but there is no strike through. No hemorrhage. No erythema noted to skin. He is neurovascularly intact in the right lower extremity and leg lengths appeared near equal. No external rotation or shortening. LABORATORY DATA: Microbiology demonstrates MRSA with demonstrated resistance to Bactrim. Hemoglobin and hematocrit are 8.6 and 25.4. IMPRESSION: An 83-year-old white male, postoperative day 1 right hip septic arthroplasty revision. PLAN: 1. Discontinue Bactrim. 2. Pharmacy to dose vancomycin and follow peak and trough dosed appropriately. 3. Physical therapy has been ordered for weightbearing as tolerated standing and postop orders. 4. Pending evaluation by Dr. Lisa. Job ID: [id number]
[2019-02-24] MEDS: Rifampin 300 MG CAP PO SCH (22:11)
[2019-02-24] MEDS: Atorvastatin Calcium 40 MG TAB PO SCH (22:12)
[2019-02-24] MEDS: LEVETIRACETAM 750 MG PO SCH (22:19)
--- NOTE | 2019-02-24 23:07 | PDOC.PN ---
- Subjective Encounter Start Date: 02/24/19 Encounter Start Time: 15:00 Patient seen and examined for med mngt. Pain controlled. Chronic headaches. No new complaints. No overnight events - Objective MAR Reviewed: Yes Vital Signs & Weight: Vital Signs (12 hours) Temp Pulse Resp BP BP Pulse Ox 02/24/19 22:11 155/56 H 02/24/19 20:22 99.4 F 93 18 155/56 H 96 02/24/19 15:40 99.1 F 79 14 119/59 L 95 02/24/19 11:37 98.4 F 98 18 126/61 95 Weight Weight 145 lb 14.4 oz I&O: 02/23/19 02/24/19 02/25/19 06:59 06:59 06:59 Intake Total 800 1100 Output Total 750 600 Balance 50 500 Result Diagrams: 02/24/19 04:48 EKG Reviewed by me: Yes (Tele strip - SR) Phys Exam - Physical Examination Constitutional: NAD Respiratory: no wheezing, no rhonchi Cardiovascular: RRR, no rub Gastrointestinal: soft, non-tender, positive bowel sounds Musculoskeletal: no edema Neurological: moves all 4 limbs Dx/Plan - Plan DVT proph w/SCDs IMPRESSION: HTN HLD h/o Atrial flutter s/p ablation Physical deconditioning Chronic headaches after Zoster - on Lyrica Seizure disorder Chronic anticoag Physical deconditioning Swallow dysfunction PLAN: Cont Lisinopril/Toprol/Amlodipine Cont Keppra Cont Lyrica for headaches AM labs Cont other meds as below Add Pepcid Change diet to Mech soft 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 DPOA - spouse Review of Systems - Review of Systems Cardiovascular: negative: chest pain, palpitations, orthopnea, paroxysmal nocturnal dyspnea, edema, light headedness, other Gastrointestinal: negative: Nausea, Vomiting, Abdominal Pain, Diarrhea, Constipation, Melena, Hematochezia, Other - Medications/Allergies Allergies/Adverse Reactions: Allergies Allergy/AdvReac Type Severity Reaction Status Date / Time iodine Allergy Verified 02/24/19 05:14 shellfish derived Allergy Verified 02/22/19 17:52 Medications: Current Medications Acetaminophen (Tylenol) 650 mg PO Q4H PRN PRN Reason: Headache/Fever or Pain Acetaminophen (Tylenol) 1,000 mg PO Q6HR [facility] Last Admin: 02/24/19 17:36 Dose: 1,000 mg Hydrocodone Bitart/Acetaminophen ([place] 10/325) 1 tab PO Q4H PRN PRN Reason: Moderate Pain (4-6) Amlodipine Besylate (Norvasc) 5 mg PO DAILY [facility] Last Admin: 02/24/19 08:44 Dose: 5 mg Apixaban (Eliquis) 2.5 mg PO BID [facility] Last Admin: 02/24/19 19:36 Dose: Not Given Ascorbic Acid (Vitamin C) 500 mg PO BID [facility] Last Admin: 02/24/19 22:12 Dose: 500 mg Aspirin (Ecotrin) 81 mg PO DAILY [facility] Last Admin: 02/24/19 08:45 Dose: 81 mg Atorvastatin Calcium (Lipitor) 80 mg PO HS [facility] Last Admin: 02/24/19 22:12 Dose: 80 mg Calcium Carbonate (Oscal-500) 500 mg PO DAILY [facility] Last Admin: 02/24/19 08:44 Dose: 500 mg Cholecalciferol (Vitamin D3) 1,000 units PO DAILY [facility] Last Admin: 02/24/19 08:44 Dose: 1,000 units Diphenhydramine HCl (Benadryl) 25 mg PO Q6H PRN PRN Reason: Itching Ferrous Gluconate (Fergon) 324 mg PO BID[facility] Last Admin: 02/24/19 17:36 Dose: 324 mg Vancomycin HCl 1.5 gm/ Sodium (Chloride) 300 mls @ 200 mls/hr IVPB 0100,1300 [facility] Last Admin: 02/24/19 12:55 Dose: 300 mls Iron/Minerals/Multivitamins (Theragran M) 1 tab PO DAILY [facility] Last Admin: 02/24/19 08:44 Dose: 1 tab Lisinopril (Zestril) 10 mg PO BID [facility] Last Admin: 02/24/19 22:11 Dose: 10 mg Metoprolol Succinate (Toprol Xl) 25 mg PO DAILY [facility] Last Admin: 02/24/19 08:45 Dose: 25 mg Miscellaneous Medication (Pharmacy To Dose) 1 each IVPB ONE PRN PRN Reason: Pharmacy to dose Stop: 03/06/19 13:18 Ondansetron HCl (Zofran) 4 mg IVP Q6H PRN PRN Reason: Nausea/Vomiting Patient's Home Medication Levetiracetam Er 750 Mg [Keppra] 0 each PO BID [facility] Last Admin: 02/24/19 22:19 Dose: Not Given Polyethylene Glycol (Miralax) 17 gm PO DAILYPRN PRN PRN Reason: Constipation Polyethylene Glycol (Miralax) 17 gm PO DAILY [facility] Potassium Chloride (K-Dur) 20 meq PO QAM-WM [facility] Last Admin: 02/24/19 08:44 Dose: 20 meq Pregabalin (Lyrica) 50 mg PO BID [facility] Last Admin: 02/24/19 22:10 Dose: 50 mg Promethazine HCl (Phenergan) 12.5 mg IM Q4H PRN PRN Reason: Nausea/Vomiting Rifampin (Rifadin) 300 mg PO 1000,2200 [facility] Last Admin: 02/24/19 22:11 Dose: 300 mg Saccharomyces Boulardii (Florastor) 250 mg PO QAM [facility] Last Admin: 02/24/19 08:44 Dose: 250 mg Senna/Docusate Sodium (Senokot S) 2 tab PO BID [facility] Last Admin: 02/24/19 22:11 Dose: 2 tab Sodium Chloride (Flush - Normal Saline) 10 ml IVF PRN PRN PRN Reason: Saline Flush Zolpidem Tartrate (Ambien) 5 mg PO HSPRN PRN PRN Reason: Insomnia
[2019-02-25 00:48] LABS: Vancomycin, Trough 15.9 ug/mL
--- NOTE | 2019-02-25 00:50 | PRG ---
DATE OF SERVICE: 02/24/2019 This is a followup note from a consult that was done at rehab a few days ago. HISTORY OF PRESENT ILLNESS: The patient is Mr. Dai and he has a history of hypertension, atrial fibrillation, and prior CVAs with right-sided weakness, and also recent episode of trigeminal nerve distribution herpes zoster, which left him with a quite severe postherpetic neuralgia. The patient sustained a right-sided femoral neck fracture, underwent hemiarthroplasty, unfortunately, developed MRSA infection with bacteremia. Dr. Flores revised the sites and placed a new stem. He is currently in the first postop day and he is still having intermittent neuralgic head symptoms which are somewhat chronic. No visual symptoms, sore throat, odynophagia, or dysphagia. No dyspnea or chest pain. No abdominal pain. No diarrhea. 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 ALLERGIES: IODINE AND SHELLFISH. THE OTHER DETAILS OF THE H AND P CAN BE SEEN AT MY RECENT CONSULT NOTE. PHYSICAL EXAMINATION: CURRENT VITAL SIGNS: Essentially normal except for somewhat low blood pressures. His O2 saturations are good, room air, exactly around 95. SKIN: Shows the previously noted area of erythema around the incision, now obviously he is postoperative day 1, I did not remove the dressing. The patient has a peripheral IV access. No lymphadenopathy. HEENT: Ocular movements conjugate. Sclerae white. Pupils are equal. Oral cavity normal. NECK: Supple. LUNGS: Symmetric. Clear breath sounds. CARDIOVASCULAR: S1 and S2, regular rate. ABDOMEN: Soft. Not distended. GENITOURINARY: The patient is voiding with an indwelling catheter. EXTREMITIES: No joint inflammatory activity. Slightly weaker on the right side. COGNITIVE FUNCTION: He knows his name. He knew where he was. Sometimes, he has difficulty with recollection, but I think most of it is due to his severe and frequent postherpetic neuralgic symptoms and that kind of interrupt his speech or his flow of thought. Every time he tries to give an answer, the neuropathy hits and he has to stop. LABORATORY DATA: White cell count is 11,000, hemoglobin 8.6, platelets 385. CRP 13.51. Previous chemistry eval with albumin 3.0, AST 36, ALT 76, alkaline phosphatase normal, and bilirubin normal, sodium 132, this is from yesterday. Creatinine 0.73. His last vancomycin level was 12.6 yesterday. IMAGING STUDIES: Include a hip x-ray. 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 The patient had revision and we will continue IV vancomycin, add rifampin, treat for 6 weeks, end date of therapy is around April 07. Weekly labs. After completion of IV phase of therapy, then transition to rifampin plus doxycycline for a month and a half and then suppressive doxycycline indefinitely. Job ID: [id number] MTDD
[2019-02-25] MEDS: Acetaminophen 500 MG TAB PO SCH ×4 (01:12→17:27)
[2019-02-25] MEDS: Vancomycin HCl 1.5 GM in Sodium Chloride 0.9% 250 ML 300 ML IVPB SCH ×2 (01:15→14:06)
[2019-02-25 06:58] LABS: Hemoglobin 8.6 g/dL (14.0-18.0); Mean Corpuscular HGB CONC 33.5 g/dL (32.0-36.0); Mean Corpuscular Volume 95.5 fL (78.0-98.0); Mean Platelet Volume 6.1 fL (7.4-10.4); Platelet Count 376 thou/uL (130-400); RBC Distribution Width 12.4 % (11.5-14.5); Red Blood Cell (RBC) Count 2.67 mill/uL (4.70-6.10)
[2019-02-25 07:22] LABS: Albumin 2.6 g/dL (3.4-4.8); Anion Gap 11 mmol/L (10-20); BUN (Urea Nitrogen) 9 mg/dL (8.4-25.7); BUN/Creatinine Ratio 13.24; Calc. Creatinine Clearance 78 mL/min (70-130); Calcium 8.6 mg/dL (7.8-10.44); Carbon Dioxide 27 mmol/L (23-31); Chloride 100 mmol/L (98-107); Estimated GFR-MDRD Greater than 90; Glucose 113 mg/dL (83-110); Magnesium 1.6 mg/dL (1.6-2.6); Phosphorus 3.7 mg/dL (2.3-4.7); Sodium 134 mmol/L (136-145)
[2019-02-25] MEDS ORDERED: Famotidine 20 MG TAB PO SCH (09:00)
[2019-02-25] MEDS ORDERED: Multivit, Therapeutic 1 TAB PO SCH (09:00)
[2019-02-25] MEDS ORDERED: Folic Acid 1 MG TAB PO SCH (09:00)
[2019-02-25] MEDS ORDERED: Cyanocobalamin (Vitamin B-12) 1,000 MCG TAB PO SCH (09:00)
[2019-02-25] MEDS ORDERED: Polyethylene Glycol 3350 17 GM Packet PO SCH (09:00)
[2019-02-25] MEDS: Pregabalin 50 MG CAP PO SCH (09:04)
[2019-02-25] MEDS: LEVETIRACETAM 750 MG PO SCH (09:06)
[2019-02-25] MEDS: Saccharomyces boulardii 250 MG CAP PO SCH (09:06)
[2019-02-25] MEDS: Ferrous Gluconate 324 MG TAB PO SCH ×2 (09:06→17:27)
[2019-02-25] MEDS: Amlodipine 5 MG TAB PO SCH (09:07)
[2019-02-25] MEDS: Multivitamin W/ Minerals 1 TAB PO SCH (09:07)
[2019-02-25] MEDS: Potassium Chloride 20 MEQ TAB PO SCH (09:07)
[2019-02-25] MEDS: Aspirin 81 mg Enteric Coated Tablet PO SCH (09:07)
[2019-02-25] MEDS: Ascorbic Acid 500 mg Chewable Tablet PO SCH (09:08)
[2019-02-25] MEDS: Lisinopril 10 MG TAB PO SCH (09:08)
[2019-02-25] MEDS: Apixaban 2.5 MG TAB PO SCH (09:09)
[2019-02-25] MEDS: Senokot S 8.6-50 MG TAB PO SCH (09:09)
[2019-02-25] MEDS: Calcium Carbonate 500 MG TAB PO SCH (09:09)
--- NOTE | 2019-02-25 11:31 | PRG ---
DATE OF SERVICE: SUBJECTIVE: Koffi is an 83-year-old white male who is postop day 2 from a right hip revision hemiarthroplasty secondary to MRSA infection. He has very little pain at this point and he is responsive and appropriate. He looks better today. Dr. Lisa has seen the patient and ordered a PICC line for 6 weeks of vancomycin IV and rifampin. OBJECTIVE: VITAL SIGNS: Temperature 98.3, pulse 93, blood pressure is 143/64, respiratory rate 16 and nonlabored, O2 saturation is 96% on room air. GENERAL: He is alert and oriented to person, place, time, situation, and grossly nonfocal. MUSCULOSKELETAL: His right hip incision, there is no strike through. No significant erythema. He is neurovascularly intact in both lower extremities. IMPRESSION: 1. Atrial fibrillation. 2. Prior cerebrovascular accidents. 3. Right hip revision cemented hemiarthroplasty secondary to methicillin-resistant Staphylococcus aureus infection. 4. Bacteremia. PLAN: Continue current care, PICC line placement and re-consult Case Management for placement. Job ID: [id number]
--- NOTE | 2019-02-25 11:39 | PDOC.PN ---
- Subjective Encounter Start Date: 02/25/19 Encounter Start Time: 10:45 Patient seen and examined for med mngt. Hip pain+. Headache improving. No fever/ CP/N/V. No new complaints. No overnight events - Objective MAR Reviewed: Yes Vital Signs & Weight: Vital Signs (12 hours) Temp Pulse Resp BP BP Pulse Ox 02/25/19 09:08 143/64 H 02/25/19 09:07 86 143/64 H 02/25/19 08:18 97.7 F 86 16 143/64 H 96 02/25/19 08:00 96 02/25/19 04:42 98.3 F 93 16 121/60 96 02/25/19 00:44 97.4 F L 90 16 139/63 96 Weight Weight 145 lb 14.4 oz I&O: 02/24/19 02/25/19 02/26/19 06:59 06:59 06:59 Intake Total 800 1600 Output Total 750 2800 Balance 50 -1200 Result Diagrams: 02/25/19 06:40 02/25/19 06:40 Phys Exam - Physical Examination Constitutional: NAD Respiratory: no wheezing, no rhonchi Cardiovascular: RRR, no rub Gastrointestinal: soft, non-tender, positive bowel sounds Neurological: moves all 4 limbs Dx/Plan - Plan DVT proph w/SCDs IMPRESSION: HTN - on Amlodipine/Toprol/Lisinopril h/o Atrial flutter s/p ablation Physical deconditioning Chronic headaches after Zoster - on Lyrica Seizure disorder - on Keppra ER Chronic anticoag Physical deconditioning Swallow dysfunction - on modified diet Moderate Protein Calorie Malnutrition HLD PLAN: Cont current meds as below 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 Review of Systems - Review of Systems Respiratory: negative: Cough, Dry, Shortness of Breath, Hemoptysis, SOB with Excertion, Pleuritic Pain, Sputum, Wheezing Cardiovascular: negative: chest pain, palpitations, orthopnea, paroxysmal nocturnal dyspnea, edema, light headedness, other Gastrointestinal: negative: Nausea, Vomiting, Abdominal Pain, Diarrhea, Constipation, Melena, Hematochezia, Other - Medications/Allergies Allergies/Adverse Reactions: Allergies Allergy/AdvReac Type Severity Reaction Status Date / Time iodine Allergy Verified 02/24/19 05:14 shellfish derived Allergy Verified 02/22/19 17:52 Medications: Current Medications Acetaminophen (Tylenol) 650 mg PO Q4H PRN PRN Reason: Headache/Fever or Pain Last Admin: 02/25/19 09:03 Dose: 650 mg Acetaminophen (Tylenol) 1,000 mg PO Q6HR [facility] Last Admin: 02/25/19 06:14 Dose: 1,000 mg Hydrocodone Bitart/Acetaminophen ([place] 10/325) 1 tab PO Q4H PRN PRN Reason: Moderate Pain (4-6) Amlodipine Besylate (Norvasc) 5 mg PO DAILY [facility] Last Admin: 02/25/19 09:07 Dose: 5 mg Apixaban (Eliquis) 2.5 mg PO BID [facility] Last Admin: 02/25/19 09:09 Dose: Not Given Ascorbic Acid (Vitamin C) 500 mg PO BID [facility] Last Admin: 02/25/19 09:08 Dose: 500 mg Aspirin (Ecotrin) 81 mg PO DAILY [facility] Last Admin: 02/25/19 09:07 Dose: 81 mg Atorvastatin Calcium (Lipitor) 80 mg PO HS [facility] Last Admin: 02/24/19 22:12 Dose: 80 mg Calcium Carbonate (Oscal-500) 500 mg PO DAILY [facility] Last Admin: 02/25/19 09:09 Dose: 500 mg Cholecalciferol (Vitamin D3) 1,000 units PO DAILY [facility] Last Admin: 02/25/19 09:07 Dose: 1,000 units Cyanocobalamin (Vitamin B-12) 1,000 mcg PO DAILY [facility] Last Admin: 02/25/19 09:09 Dose: 1,000 mcg Diphenhydramine HCl (Benadryl) 25 mg PO Q6H PRN PRN Reason: Itching Famotidine (Pepcid) 20 mg PO BID [facility] Last Admin: 02/25/19 09:08 Dose: 20 mg Ferrous Gluconate (Fergon) 324 mg PO BID-[facility] Last Admin: 02/25/19 09:06 Dose: 324 mg Folic Acid (Folvite) 1 mg PO DAILY [facility] Last Admin: 02/25/19 09:08 Dose: 1 mg Vancomycin HCl 1.5 gm/ Sodium (Chloride) 300 mls @ 200 mls/hr IVPB 0100,1300 [facility] Last Admin: 02/25/19 01:15 Dose: 300 mls Iron/Minerals/Multivitamins (Theragran M) 1 tab PO DAILY [facility] Last Admin: 02/25/19 09:07 Dose: 1 tab Lisinopril (Zestril) 10 mg PO BID [facility] Last Admin: 02/25/19 09:08 Dose: 10 mg Metoprolol Succinate (Toprol Xl) 25 mg PO DAILY [facility] Last Admin: 02/25/19 09:08 Dose: 25 mg Miscellaneous Medication (Pharmacy To Dose) 1 each IVPB ONE PRN PRN Reason: Pharmacy to dose Stop: 03/06/19 13:18 Multivitamins (Theragran) 1 tab PO DAILY [facility] Last Admin: 02/25/19 09:09 Dose: Not Given Ondansetron HCl (Zofran) 4 mg IVP Q6H PRN PRN Reason: Nausea/Vomiting Patient's Home Medication Levetiracetam Er 750 Mg [Keppra] 0 each PO BID [facility] Last Admin: 02/25/19 09:06 Dose: 1 each Polyethylene Glycol (Miralax) 17 gm PO DAILYPRN PRN PRN Reason: Constipation Polyethylene Glycol (Miralax) 17 gm PO DAILY [facility] Last Admin: 02/25/19 09:10 Dose: 17 gm Potassium Chloride (K-Dur) 20 meq PO QAM-WM [facility] Last Admin: 02/25/19 09:07 Dose: 20 meq Pregabalin (Lyrica) 50 mg PO BID [facility] Last Admin: 02/25/19 09:04 Dose: 50 mg Promethazine HCl (Phenergan) 12.5 mg IM Q4H PRN PRN Reason: Nausea/Vomiting Rifampin (Rifadin) 300 mg PO 1000,2200 [facility] Last Admin: 02/24/19 22:11 Dose: 300 mg Saccharomyces Boulardii (Florastor) 250 mg PO QAM [facility] Last Admin: 02/25/19 09:06 Dose: 250 mg Senna/Docusate Sodium (Senokot S) 2 tab PO BID [facility] Last Admin: 02/25/19 09:09 Dose: 2 tab Sodium Chloride (Flush - Normal Saline) 10 ml IVF PRN PRN PRN Reason: Saline Flush Zolpidem Tartrate (Ambien) 5 mg PO HSPRN PRN PRN Reason: Insomnia
[2019-02-25] MEDS: Rifampin 300 MG CAP PO SCH (11:44)
--- NOTE | 2019-02-25 15:13 | SPC ---
SPC CVP LINE PICC INITAL >5 HISTORY:Right hip infection, need for long-term antibiotics. COMPARISON: None. FINDINGS: After informed consent was obtained the patient was prepped and draped in normal sterile fa shion. Local anesthesia was obtained with 1% Xylocaine. Under ultrasound guidance a 22-gauge needle was used to puncture the left basilic vein. The wire was placed through the catheter with the tip mirella samira at the superior vena cava right atrium junction. Catheter was cut to length of 45 cm. A 6 [place] peel-away sheath sheath was placed, after the needle was withdrawn. Catheter tip is noted to b e at the distal superior vena cava on the final images. The patient tolerated the procedure well without any immediate complications. IMPRESSION: Ultrasound-guided placement of left-sided PICC line, the PICC line was placed in distal s uperior vena cava and is ready for use.
[2019-02-25 16:23] VITALS: BP 142/70; TEMP 98.8
== END 2019-02-25 17:55 | DRG 467 ==
LOC: SURG A 07:11 → SJJU 18:16
PROVIDERS: ADMIT Orthopaedic Surgery; ATTEND Orthopaedic Surgery
PROC: 0SRR0J9 Replacement of Right Hip Joint, Femoral Surface with Synthetic Substitute, Cemented, Open Approach (ICD-10-PCS; principal; 2019-02-23)
PROC: 0SPR0JZ Removal of Synthetic Substitute from Right Hip Joint, Femoral Surface, Open Approach (ICD-10-PCS; 2019-02-23)
PROC: 0SH908Z Insertion of Spacer into Right Hip Joint, Open Approach (ICD-10-PCS; 2019-02-23)
PROC: 02HV33Z Insertion of Infusion Device into Superior Vena Cava, Percutaneous Approach (ICD-10-PCS; 2019-02-25)
PROC: B548ZZA Ultrasonography of Superior Vena Cava, Guidance (ICD-10-PCS; 2019-02-25)
DX: T84.51XA Infection and inflammatory reaction due to internal right hip prosthesis, initial encounter (principal); I69.351 Hemiplegia and hemiparesis following cerebral infarction affecting right dominant side; E44.0 Moderate protein-calorie malnutrition; I10 Essential (primary) hypertension; I48.91 Unspecified atrial fibrillation; I25.10 Atherosclerotic heart disease of native coronary artery without angina pectoris; B95.62 Methicillin resistant Staphylococcus aureus infection as the cause of diseases classified elsewhere; R51 Headache; G40.909 Epilepsy, unspecified, not intractable, without status epilepticus; R53.1 Weakness; E78.5 Hyperlipidemia, unspecified; R13.10 Dysphagia, unspecified; Z96.641 Presence of right artificial hip joint; Z95.1 Presence of aortocoronary bypass graft; Z91.013 Allergy to seafood; Z91.041 Radiographic dye allergy status; Z79.01 Long term (current) use of anticoagulants; Z68.23 Body mass index [BMI] 23.0-23.9, adult; Y83.1 Surgical operation with implant of artificial internal device as the cause of abnormal reaction of the patient, or of later complication, without mention of misadventure at the time of the procedure
CPT/HCPCS: 36415; 36569; 80069; 80202; 83735; 85027; 86140; 86850; 86900; 86901; C1713; C1751; J2250; J3010; J3260; J3370; J3490; J7050

== ENCOUNTER → 2019-05-13 | Day surgery (SDC) | payer MEDICARE, OTHER, BC ==
[~2019-05-13] MED LIST: Heparin 1,000 UNITS/ML VIAL ONE
--- NOTE | 2019-05-14 08:15 | SPC ---
Sonographic guided left upper extremity PICC HISTORY: Hip infection. FINDINGS: After explaining the procedure and answering all questions, the left upper extremity was pr epped and draped in usual sterile fashion. Sterile technique, buffered local anesthesia, sonographic guidance, and a 22-gauge needle were used to carefully access the left basilic vein. Adam dard technique was used to place the tip of a 5 [place] dual-lumen PICC so that the tip lies at the level of the superior vena cava. Catheter was flushed and secured externally. Patient tolerated the p rocedure well and was returned in unchanged condition. Fluoroscopy time 0 seconds. IMPRESSION: Left upper extremity PICC is ready for use.
== END ==
LOC: SPEC 13:52
PROVIDERS: ATTEND Internal Medicine
DX: L08.9 Local infection of the skin and subcutaneous tissue, unspecified (principal)
CPT/HCPCS: 36569; C1751; J1644